=== PATIENT | male | born 1960 | race Caucasian/White ===

== ENCOUNTER 2017-07-24 11:11 | Inpatient (IN) | payer BC, OTHER ==
[2017-07-24] VITALS (8 sets, daily range): BP systolic 96–135; BP diastolic 68–92
[~2017-07-24] VITALS: Ht 182.9 cm; Wt 95.3 kg
--- NOTE | 2017-07-24 11:45 | RAD ---
Indication: Palpitations. Time of exam 11:34 AM Correlation is made with prior chest from 08/10/2010. FINDINGS: The heart size is normal. The lungs are clear. No pleural effusion or pneumothorax is identified. The pulmonary vascularity is normal. IMPRESSION: No acute abnormality detected.
[2017-07-24 11:52] LABS: HEMATOCRIT 46.7 % (39.0-53.0); HEMOGLOBIN 14.9 g/dL (13.0-17.5); MEAN CORPUSCULAR HEMOGLOBIN 29 pg (25-35); MEAN CORPUSCULAR HGB CONC 32 g/dL (31-37); MEAN CORPUSCULAR VOLUME 91 fL (79-100); PLATELET COUNT 281 x10^3/uL (140-400); RED BLOOD COUNT 5.11 x10^6/uL (4.30-5.70); RED CELL DISTRIBUTION WIDTH 14.7 % (11.5-14.5); WHITE BLOOD COUNT 7.6 x10^3/uL (4.0-11.0)
[2017-07-24 12:01] LABS: % BANDS 6 % (0-9); % LYMPHS 40 % (24-48); % MONOS 2 % (0-10); % SEGS 52 % (35-66)
[2017-07-24 12:03] LABS: ALBUMIN 3.7 g/dL (3.4-5.0); ALBUMIN/GLOBULIN RATIO 0.9 (1.0-1.7); CALCIUM 9.1 mg/dL (8.5-10.1); CREATININE 1.5 mg/dL (0.7-1.3); GFR 48.2; POTASSIUM 4.2 mmol/L (3.5-5.1); TOTAL BILIRUBIN 0.7 mg/dL (0.2-1.0); TOTAL PROTEIN 7.8 g/dL (6.4-8.2)
[2017-07-24 12:04] LABS: PLT ESTIMATE ADEQUATE (ADEQUATE)
[2017-07-24] MEDS ORDERED: dilTIAZem 25 MG/5 ML VIAL IVP ONE (12:10)
[2017-07-24 12:28] LABS: INFLUENZA A PATIENT NEGATIVE (NEGATIVE); INFLUENZA B PATIENT NEGATIVE (NEGATIVE)
--- NOTE | 2017-07-24 12:47 | PHYS DOC ---
Past History Past Medical History: Hypertension Past Surgical History: No Surgical History Alcohol Use: None Drug Use: None Adult General Chief Complaint Chief Complaint: RAPID HEART RATE HPI HPI 57-year-old male patient complaining of nasal congestion and cough for the last 8 days with fever up to 101 for the last 3 days. Patient was seen by his primary care physician today for upper respiratory infection symptoms and had irregular and fast heartbeat and EKG showed atrial fibrillation with RVR and sent to ER for evaluation. Patient denies chest pain and palpitation history of irregular heartbeat. Patient complaining of episodes of exertional shortness of breaths not related to his cough for the last several days with mild dizziness and generalized weakness. Review of Systems Review of Systems Constitutional: Reports fever and chills Eyes: Denies change in visual acuity, redness, or eye pain [] HENT: Reports nasal congestion Respiratory: Reports cough and shortness of breath [] Cardiovascular: No additional information not addressed in HPI [] GI: Denies abdominal pain, nausea, vomiting, bloody stools, reports diarrhea [] : Denies dysuria or hematuria [] Musculoskeletal: Denies back pain or joint pain [] Integument: Denies rash or skin lesions [] Neurologic: Denies headache, focal weakness or sensory changes [] Endocrine: Denies polyuria or polydipsia [] All other systems were reviewed and found to be within normal limits, except as documented in this note. Current Medications Current Medications Current Medications Medications (Trade) Dose Ordered Sig/Sung Start Time Stop Time Status Last Admin Dose Admin Diltiazem HCl (Cardizem) 20 mg 1X ONCE 07/24/17 12:10 07/24/17 12:11 DC 07/24/17 11:52 20 MG Diltiazem HCl 125 mg/Dextrose 125 ml @ 10 mls/hr 1X ONCE 07/24/17 12:45 07/25/17 01:14 07/24/17 12:40 10 MLS/HR Allergies Allergies Allergies Coded Allergies Type Severity Reaction Last Updated Verified No Known Drug Allergies 07/24/17 No Physical Exam Physical Exam Constitutional: Well developed, well nourished, mild distress, non-toxic appearance, afebrile. [] HENT: Normocephalic, atraumatic, bilateral external ears normal, oropharynx moist, pharyngeal erythema without edema or exudate, nose normal. [] Eyes: PERRLA, EOMI, conjunctiva normal, no discharge. [] Neck: Normal range of motion, no tenderness, supple, no stridor. [] Cardiovascular:Irregularly irregular fast rhythm, no murmur [] Lungs & Thorax: Bilateral breath sounds clear to auscultation [] Abdomen: Bowel sounds normal, soft, no tenderness, no masses, no pulsatile masses. [] Skin: Warm, dry, no erythema, no rash. [] Back: No tenderness, no CVA tenderness. [] Extremities: No tenderness, no cyanosis, no clubbing, ROM intact, no edema. [] Neurologic: Alert and oriented X 3, normal motor function, normal sensory function, no focal deficits noted. [] Psychologic: Affect normal, judgement normal, mood normal. [] Current Patient Data Vital Signs Vital Signs Date Time Temp Pulse Resp B/P (MAP) Pulse Ox O2 Delivery O2 Flow Rate FiO2 07/24/17 11:52 129 117/76 07/24/17 11:15 97.0 22 99 Room Air Lab Results Laboratory Tests Test 07/24/17 11:29 07/24/17 12:00 White Blood Count 7.6 x10^3/uL (4.0-11.0) Red Blood Count 5.11 x10^6/uL (4.30-5.70) Hemoglobin 14.9 g/dL (13.0-17.5) Hematocrit 46.7 % (39.0-53.0) Mean Corpuscular Volume 91 fL (79-100) Mean Corpuscular Hemoglobin 29 pg (25-35) Mean Corpuscular Hemoglobin Concent 32 g/dL (31-37) Red Cell Distribution Width 14.7 % (11.5-14.5) H Platelet Count 281 x10^3/uL (140-400) Segmented Neutrophils % 52 % (35-66) Band Neutrophils % 6 % (0-9) Lymphocytes % 40 % (24-48) Monocytes % 2 % (0-10) Platelet Estimate Adequate (ADEQUATE) Prothrombin Time 11.0 SEC (9.4-11.4) Prothrombin Time INR 1.1 (0.9-1.1) PTT 27 SEC (23-33) Sodium Level 137 mmol/L (136-145) Potassium Level 4.2 mmol/L (3.5-5.1) Chloride Level 101 mmol/L (98-107) Carbon Dioxide Level 27 mmol/L (21-32) Anion Gap 9 (6-14) Blood Urea Nitrogen 15 mg/dL (8-26) Creatinine 1.5 mg/dL (0.7-1.3) H Estimated GFR (Cockcroft-Gault) 48.2 BUN/Creatinine Ratio 10 (6-20) Glucose Level 118 mg/dL (70-99) H Calcium Level 9.1 mg/dL (8.5-10.1) Magnesium Level 2.0 mg/dL (1.8-2.4) Total Bilirubin 0.7 mg/dL (0.2-1.0) Aspartate Amino Transferase (AST) 32 U/L (15-37) Alanine Aminotransferase (ALT) 42 U/L (16-63) Alkaline Phosphatase 61 U/L (46-116) Creatine Kinase 281 U/L (39-308) Creatine Kinase MB (Mass) 7.6 ng/mL (0.0-3.6) H Creatine Kinase MB Relative Index 2.7 % (0-4) Troponin I Quantitative 0.023 ng/mL (0-0.055) CY-Aoz-A-Type Natriuretic Peptide 1414 pg/mL (0-124) H Total Protein 7.8 g/dL (6.4-8.2) Albumin 3.7 g/dL (3.4-5.0) Albumin/Globulin Ratio 0.9 (1.0-1.7) L Influenza Type A (Rapid) Negative (NEGATIVE) Influenza Type B (Rapid) Negative (NEGATIVE) EKG EKG EKG interpreted by me. EKG at 1123 showed atrial fibrillation with RVR at rate of 155, no acute ST and T-wave abnormality[] Radiology/Procedures Radiology/Procedures [Chest x-ray was unremarkable] Course & Med Decision Making Course & Med Decision Making Pertinent Labs and Imaging studies reviewed. (See chart for details) Evaluation of patient in ER showed 57-year-old male patient sent from his primary care physician office because of atrial flutter patient with RVR without history of arrhythmia. Patient didn't have chest pain with heart rate of 150s. Patient treated with bolus of 20 mg of Cardizem and drip of Cardizem and heart rate gradually dropped to 120s and 100s. Patient had otherwise stable vital signs. Flu test and labs was unremarkable except for BNP of 1400. Patient felt better after treatment in ER. On-call hospitalist Dr London informed at 1245 and agreed with plan of care and admission of patient to ICU. Patient informed about plan of care and test results. Dragon Disclaimer Dragon Disclaimer This electronic medical record was generated, in whole or in part, using a voice recognition dictation system. Departure Departure: Impression: Primary Impression: Atrial fibrillation with RVR Additional Impressions: Elevated brain natriuretic peptide (BNP) level Flu-like symptoms History of hypertension Disposition: 09 ADMITTED INPATIENT (At 1247) Admitting Physician: Jorge Luis London Condition: IMPROVED Referrals: DINESH DEL REAL MD (PCP) Critical Care Time Critical care time was [60] minutes exclusive of procedures. Problem Qualifiers KRISTINA HERNANDEZ MD Jul 24, 2017 12:47
--- NOTE | 2017-07-24 13:28 | EKG ---
[address] [address] Test Date: 2017-07-24 Test Time: 11:22:53 Pat Name: RON JAEGER Department: Room: Gender: M Engagement Liaison: BIBIANA : 1960 Requested By: KRISTINA HERNANDEZ Order Number: [id number] Reading MD: Measurements Intervals [place] Rate: 165 P: MO: QRS: 5 QRSD: 80 T: 58 QT: 284 QTc: 473 Interpretive Statements IRREGULAR RHYTHM, NO P-WAVE FOUND LOW LIMB LEAD VOLTAGE NO SPECIFIC ECG ABNORMALITIES RI6.01 Unconfirmed report No previous ECG available for comparison
[2017-07-24] MEDS ORDERED: LISI10TA2 PO (15:03)
[2017-07-24] MEDS ORDERED: METO100T5 PO (15:09)
--- NOTE | 2017-07-24 16:25 | PDOC2 ---
CONSULT Date of Admission DATE: 07/24/17 TIME: 16:19 Reason for Consult: Atrial fibrillation Referring Physician: Dr. London Chief Complaint Shortness of breath Source: Chart review, Patient Problem List Problems Medical Problems: (1) Atrial fibrillation with RVR Status: Acute (2) Elevated brain natriuretic peptide (BNP) level Status: Acute (3) Flu-like symptoms Status: Acute (4) History of hypertension Status: Acute History of Present Illness 57-year-old male presented complaining of shortness of breath since this morning. He was diagnosed with atrial fibrillation with rapid ventricular response in the emergency room. He denied any palpitations as such. He also denied any chest pain, orthopnea/PND or syncope. He denied any previous history of arrhythmias. He was told he had ventricular septal defect in his childhood but never had any further cardiac follow-up. Past Medical History Hypertension Ventricular septal defect Past Surgical History Cholecystectomy Family History Patient has a history of atrial fibrillation in the family but denied any history of premature coronary disease Social History Patient denied any smoking, alcohol or drug use Current Medications Current Medications Diltiazem HCl (Cardizem) 20 mg 1X ONCE IVP Last administered on 07/24/17t 11: 52; Start 07/24/17 at 12:10; Stop 07/24/17 at 12:11; Status DC Diltiazem HCl 125 mg/Dextrose 125 ml @ 10 mls/hr 1X ONCE IV ; Start 07/24/17 at 12:15; Stop 07/24/17 at 12:22; Status DC Diltiazem HCl 125 mg/Dextrose 125 ml @ 10 mls/hr 1X ONCE IV Last administered on 07/24/17t 12:40; Start 07/24/17 at 12:45; Stop 07/25/17 at 01 :14 Diltiazem HCl 125 mg/Dextrose 125 ml @ 0 mls/hr CONT PRN IV SEE I/O RECORD; Start 07/24/17 at 15:30 Active Scripts Active Reported Toprol Xl (Metoprolol Succinate) 100 Mg Tab.er.24h 1 Tab PO HS Lisinopril 10 Mg Tablet 1 Tab PO HS Allergies: Coded Allergies: No Known Drug Allergies (Unverified , 07/24/17) PSYCHOLOGICAL ROS: No: Hallucinations Eyes: No: Loss of vision HEENT: No: Epistaxis Respiratory: YES: Shortness of breath, No: Hemoptysis Cardiovascular: No: Chest Pain, Palpitations Neurological: No: Confusion, Seizures Skin: No: Rash General: Alert, Oriented X3 HEENT: Atraumatic, PERRLA Lungs: Clear to auscultation Heart: Other (heart rate is irregular) Abdomen: Soft, No tenderness Extremities: No edema Psych/Mental Status: Mood NL VITALS Vital Signs Date Time Temp Pulse Resp B/P (MAP) Pulse Ox O2 Delivery O2 Flow Rate FiO2 07/24/17 15:10 98.3 134 22 135/90 (105) 98 Room Air Labs Laboratory Tests Test 07/24/17 11:29 07/24/17 12:00 07/24/17 15:00 White Blood Count 7.6 x10^3/uL (4.0-11.0) Red Blood Count 5.11 x10^6/uL (4.30-5.70) Hemoglobin 14.9 g/dL (13.0-17.5) Hematocrit 46.7 % (39.0-53.0) Mean Corpuscular Volume 91 fL (79-100) Mean Corpuscular Hemoglobin 29 pg (25-35) Mean Corpuscular Hemoglobin Concent 32 g/dL (31-37) Red Cell Distribution Width 14.7 % (11.5-14.5) Platelet Count 281 x10^3/uL (140-400) Segmented Neutrophils % 52 % (35-66) Band Neutrophils % 6 % (0-9) Lymphocytes % 40 % (24-48) Monocytes % 2 % (0-10) Platelet Estimate Adequate (ADEQUATE) Prothrombin Time 11.0 SEC (9.4-11.4) Prothromb Time International Ratio 1.1 (0.9-1.1) Activated Partial Thromboplast Time 27 SEC (23-33) Sodium Level 137 mmol/L (136-145) Potassium Level 4.2 mmol/L (3.5-5.1) Chloride Level 101 mmol/L (98-107) Carbon Dioxide Level 27 mmol/L (21-32) Anion Gap 9 (6-14) Blood Urea Nitrogen 15 mg/dL (8-26) Creatinine 1.5 mg/dL (0.7-1.3) Estimated GFR (Cockcroft-Gault) 48.2 BUN/Creatinine Ratio 10 (6-20) Glucose Level 118 mg/dL (70-99) Calcium Level 9.1 mg/dL (8.5-10.1) Magnesium Level 2.0 mg/dL (1.8-2.4) Total Bilirubin 0.7 mg/dL (0.2-1.0) Aspartate Amino Transf (AST/SGOT) 32 U/L (15-37) Alanine Aminotransferase (ALT/SGPT) 42 U/L (16-63) Alkaline Phosphatase 61 U/L (46-116) Creatine Kinase 281 U/L (39-308) Creatine Kinase MB (Mass) 7.6 ng/mL (0.0-3.6) Creatine Kinase MB Relative Index 2.7 % (0-4) Troponin I Quantitative 0.023 ng/mL (0-0.055) VK-Hjj-Q-Type Natriuretic Peptide 1414 pg/mL (0-124) Total Protein 7.8 g/dL (6.4-8.2) Albumin 3.7 g/dL (3.4-5.0) Albumin/Globulin Ratio 0.9 (1.0-1.7) Thyroid Stimulating Hormone (TSH) 1.693 uIU/mL (0.358-3.740) Influenza Type A (Rapid) Negative (NEGATIVE) Influenza Type B (Rapid) Negative (NEGATIVE) Lactic Acid Level 1.4 mmol/L (0.4-2.0) Assessment/Plan 1. Atrial fibrillation with rapid ventricular response, new onset. TSH level normal. Heart rate better controlled with intravenous Cardizem infusion. Change this to by mouth and start Eliquis for stroke prophylaxis. Check 2-D echo to assess LV systolic function. Plan for outpatient cardioversion after 3-4 weeks of therapeutic anticoagulation. 2. Elevated BNP level consistent with mild acute diastolic heart failure probably related to rapid ventricular response. Chest x-ray and physical exam not consistent with any significant fluid overload. We will hold off diuretics for now. 3. Hypertension: Well-controlled Thank you for your consultation Problems: DON RODRIGUEZ MD Jul 24, 2017 16:25
--- NOTE | 2017-07-24 16:57 | HP ---
ADMIT DATE: 07/24/2017 HISTORY OF PRESENT ILLNESS: The patient is a 57-year-old male patient who basically came to the Emergency Room complaining of shortness of breath. He apparently has had upper respiratory tract infection and stuffy nose that has been going on for about 6 days. 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 On questioning him further, he did complain of lightheadedness, but denied any chest pain, denied any orthopnea or paroxysmal nocturnal dyspnea. Denied any cough, phlegm or hemoptysis. The patient was admitted to control the heart rate and started on blood thinner and to consult the Cardiology team. PAST MEDICAL HISTORY: Significant for hypertension and history of nephrolithiasis 10 years ago with stone that he passed spontaneously. He also has a history of bowel obstruction that resolved conservatively. PAST SURGICAL HISTORY: Significant for cholecystectomy, has a hernia repair when he was only 6 months old and colonoscopy. ALLERGIES: He has no known drug allergies. MEDICATIONS: He is currently on lisinopril 10 mg once a day and metoprolol succinate 100 mg extended release 1 tablet once a day. FAMILY HISTORY: He has 1 younger brother who is also known to have high blood pressure, and his father is alive at age of 78 and he is known to have hypertension, atrial fibrillation, has had also myocardial infarction with PCI and stent deployment. His mother is still alive at age of 76, who is known to have hypertension and atrial fibrillation. SOCIAL HISTORY: He is twice. Currently lives with his girlfriend and has 2 sons and 1 daughter. He never smoked, does not drink alcohol or use any drugs. 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 REVIEW OF SYSTEMS: The patient denied any blurring of vision, cataract, glaucoma or macular degeneration. Denied any earache, tinnitus or sensorineural deafness. Denied any nosebleeds, stuffy nose or postnasal drip. Denied any sore throat, sore tongue, toothache, hoarseness of voice or difficulty swallowing. Denied any nausea, vomiting, diarrhea or constipation. Denied any hematemesis, melena or hematochezia. Denied any dysuria, frequency or hematuria. Did complain of shortness of breath, but denied any chest pain, denied any diaphoresis, denied any orthopnea or paroxysmal nocturnal dyspnea. Did complain of lightheadedness. PHYSICAL EXAMINATION: GENERAL: On arrival to the Emergency Room, he was slightly tachypneic, but there is no pallor, jaundice or cyanosis. No lymphadenopathy, no thyromegaly. No jugular venous distension. No limb edema. HEENT: His heart rate was 168, irregularly irregular, blood pressure was 117/76, temperature was 97, respiratory rate 22, and oxygen saturation was 99%. HEAD, EYES, EARS, NOSE AND THROAT: Showed normocephalic, atraumatic. NECK: Supple. HEART: Showed regular first heart sound, normal second heart sounds with no gallop, rub or murmur. CHEST: Clear to auscultation. No crepitation or rhonchi. ABDOMEN: Distended, soft, nontender. No guarding or rigidity. No organomegaly. Hernial orifice intact. Bowel sounds normal. NEUROLOGIC: He was awake, alert, responding appropriately. All cranial nerves intact. He moves extremities without difficulty. LABORATORY AND DIAGNOSTIC DATA: His lab work showed a white cell count 7600, hemoglobin 14.9, hematocrit 47, MCV 91, and platelet count 281,000 with normal manual differential. His prothrombin time was 11, INR 1.1, aPTT was 27. His chemistry showed a serum sodium 137, potassium 4.2, chloride 101, bicarbonate 27, anion gap of 9, BUN 15, creatinine 1.5, estimated GFR was 48 mL per minute. His glucose was 118, calcium was 9.1, and magnesium 2. Total bilirubin, AST, ALT, alkaline phosphatase were normal. His first set of cardiac enzymes showed troponin to be 0.023. Beta natriuretic peptide was 1414. Total protein was 7.8, albumin 3.7. His TSH was 1.693. Serology for influenza A and B were negative. His EKG showed that he was in atrial fibrillation with rapid ventricular response. No acute ST-T changes. SUMMARY: This is a 57-year-old male patient who was admitted with shortness of breath and was found to be in atrial fibrillation with rapid ventricular response. His lab work showed that he has slightly elevated troponin at 0.023 and also has slightly impaired kidney function at 1.5 mg/dL with an estimated GFR of 48 mL per minute. Plan is to do 2 more sets of cardiac enzyme, consult the Cardiology. He was given a loading dose of Cardizem and is now on a Cardizem drip. LAURA SAHNI MD DR: AMINA/rula JOB#: [id number] / [id number]
[2017-07-24] MEDS: APIXABAN 5 MG TABLET. PO SCH (21:13)
[2017-07-24] MEDS: TEMAZEPAM 15 MG CAPSULE PO PRN (22:06)
[2017-07-24] MEDS: HYDROcodone/APAP 5/325MG 1 TAB TABLET PO PRN (22:07)
[2017-07-25] VITALS (17 sets, daily range): BP systolic 96–128; BP diastolic 41–95
[2017-07-25 06:22] LABS: BASO % 0 % (0-3); EOS # 0.2 x10^3/uL (0.0-0.7); EOS % 3 % (0-3); HEMATOCRIT 43.6 % (39.0-53.0); HEMOGLOBIN 14.4 g/dL (13.0-17.5); LYMPH # 1.4 x10^3/uL (1.0-4.8); LYMPH % 24 % (24-48); MEAN CORPUSCULAR HEMOGLOBIN 30 pg (25-35); MEAN CORPUSCULAR HGB CONC 33 g/dL (31-37); MEAN CORPUSCULAR VOLUME 92 fL (79-100); MONO # 0.4 x10^3/uL (0.0-1.1); MONO % 6 % (0-9); NEUT # 3.9 x10^3uL (1.8-7.7); NEUT % 67 % (31-73); PLATELET COUNT 231 x10^3/uL (140-400); RED BLOOD COUNT 4.75 x10^6/uL (4.30-5.70); RED CELL DISTRIBUTION WIDTH 14.3 % (11.5-14.5); WHITE BLOOD COUNT 5.9 x10^3/uL (4.0-11.0)
[2017-07-25 06:43] LABS: CALCIUM 8.3 mg/dL (8.5-10.1); CREATININE 1.1 mg/dL (0.7-1.3); MAGNESIUM 1.9 mg/dL (1.8-2.4); POTASSIUM 3.7 mmol/L (3.5-5.1)
[2017-07-25] MEDS: APIXABAN 5 MG TABLET. PO SCH ×2 (07:28→21:12)
[2017-07-25] MEDS: HYDROcodone/APAP 5/325MG 1 TAB TABLET PO PRN (07:36)
--- NOTE | 2017-07-25 09:26 | RAD ---
2 views of the Chest 07/25/2017 9:42 AM Indication: crackles L bases Comparison: Chest radiograph July 24, 2017 Findings: There is no focal consolidation or infiltrate identified. There is no effusion or pneumothorax. The cardiomediastinal silhouette and pulmonary vasculature are within normal limits. No osseous abnormality is identified. Impression: No evidence of acute cardiopulmonary process.
[2017-07-25] MEDS ORDERED: ONDANSETRON PF 4 MG/2 ML VIAL. ONE (14:07)
[2017-07-25] MEDS ORDERED: ONDANSETRON PF 4 MG/2 ML VIAL. IV PRN (14:15)
[2017-07-25] MEDS ORDERED: KETOROLAC 30 MG/ML VIAL. IV PRN (15:15)
[2017-07-25] MEDS ORDERED: ACETAMINOPHEN 325 MG TABLET PO PRN (15:15)
--- NOTE | 2017-07-25 16:59 | PN ---
DATE: 07/25/2017 SUBJECTIVE: Overnight, the patient did not have any significant events this morning. He had some mild nausea and some headaches, which ultimately led to emesis. He otherwise denies any chest pain, orthopnea or PND. OBJECTIVE: VITAL SIGNS: Afebrile, heart rate average run 110, blood pressure 115/62, pulse ox 99% on room air. GENERAL: He is alert and oriented, in no acute distress. HEAD AND NECK: Unremarkable. Neck veins are flat. CARDIAC: Irregular rate and rhythm without any murmurs, rubs or gallops. LUNGS: Fairly clear to auscultation bilaterally. ABDOMEN: Soft, nontender, and nondistended. EXTREMITIES: Without any clubbing, cyanosis or edema with 2+ pulses. DIAGNOSTIC STUDIES: Echocardiogram is pending. Creatinine 1.1. INR yesterday 1.1, and hemoglobin 14.4 today. Chest x-ray: No evidence of acute pathology. IMPRESSION: 1. New onset atrial fibrillation with controlled ventricular response, on Cardizem therapy. 2. Minimal hypertension. RECOMMENDATIONS: Continue Cardizem at this present dose. If he has persistent high heart rates above 100, we will add metoprolol XL 50 mg daily. Would defer increasing his Cardizem, so that he does not had any hypotensive episodes. Treatment of his headache and nausea per PCP. We will follow up on his echo results and he will have an outpatient evaluation for consideration of cardioversion. Thank you for this consultation. GAMALIEL TAM MD DR: CAITLYN/rula JOB#: [id number] / [id number]
--- NOTE | 2017-07-25 18:01 | CARD ---
MR#: [id number] Date of Study: 07/25/2017 Ordering Physician: DON RODRIGUEZ, Referring Physician: Tawana GRACE: [facility] APPROVED REPORT EXAM: Two-dimensional and M-mode echocardiogram with Doppler and color Doppler. INDICATION Atrial Fibrillation 2D DIMENSIONS RVDd3.3 (2.9-3.5cm)Left Atrium(2D)4.3 (1.6-4.0cm) IVSd1.1 (0.7-1.1cm)Aortic Root(2D)3.7 (2.0-3.7cm) LVDd6.0 (3.9-5.9cm)LVOT Diameter2.4 (1.8-2.4cm) PWd1.2 (0.7-1.1cm)LVDs4.6 (2.5-4.0cm) FS (%) 22.9 %SV80.4 ml LVEF(%)45.2 (>50%) Aortic Valve AoV Peak Sean.132.7cm/sAoV VTI25.4cm AO Peak GR.7.0mmHgLVOT Peak Sean.92.3cm/s AO Mean GR.4mmHgAVA (VMAX)3.21cm2 Mitral Valve MV E Bqftxhlg83.6cm/sMV DECEL [id number] MV A Ooxnqulk08.2cm/sE/A Ratio3.2 Pulmonary Valve PV Peak Jdblmfvt913.1cm/sPV Peak Grad.5mmHg Tricuspid Valve RAP [id number] LEFT VENTRICLE The Left Ventricle is mildly dilated. There is normal left ventricular wall thickness. The systolic f unction is mildly impaired. The Ejection Fraction is 40-45%. Mild global hypokinesis. Tissue Doppler imaging reveals moderate left ventricular diastolic dysfunction. RIGHT VENTRICLE The right ventricle is normal size. The right ventricular systolic function is normal. ATRIA The left atrium size is normal. The right atrium size is normal. The interatrial septum is intact wit h no evidence for an atrial septal defect or patent foramen ovale as noted on 2-D or Doppler imaging. AORTIC VALVE The aortic valve is thickened but opens well. Doppler and Color Flow revealed trace aortic regurgitat ion. There is no significant aortic valvular stenosis. There is no aortic valvular vegetation. MITRAL VALVE The mitral valve is normal in structure and function. There is no evidence of mitral valve prolapse. There is no mitral valve stenosis. Doppler and Color Flow revealed no mitral valve regurgitation note d. TRICUSPID VALVE The tricuspid valve is normal in structure and function. Doppler and Color Flow revealed trace to mil d tricuspid regurgitation. There is no tricuspid valve prolapse or vegetation. There is no tricuspid valve stenosis. PULMONIC VALVE Pulmonic valve was not well visualized. Doppler and Color Flow revealed trace pulmonic valvular regur gitation. There is no pulmonic valvular stenosis. GREAT VESSELS The aortic root is normal in size. The IVC is normal in size and collapses >50% with inspiration. PERICARDIAL EFFUSION There is no pleural effusion. There is no evidence of significant pericardial effusion. Critical Notification Critical Value: No <Conclusion> The systolic function is mildly impaired. The Ejection Fraction is 40-45%. Mild global hypokinesis. Tissue Doppler imaging reveals moderate left ventricular diastolic dysfunction. Signed by : Jaydon Patel, Electronically Approved : 07/25/2017 18:01:05
[2017-07-25] MEDS ORDERED: IV NORMAL SALINE 1,000ML 500 ML IV ONE (19:15)
[2017-07-25] MEDS: TEMAZEPAM 15 MG CAPSULE PO PRN (21:12)
[2017-07-26] VITALS (9 sets, daily range): BP systolic 99–119; BP diastolic 66–84
[2017-07-26] MEDS: HYDROcodone/APAP 5/325MG 1 TAB TABLET PO PRN (02:18)
--- NOTE | 2017-07-26 03:35 | PN ---
DATE: 07/25/2017 SUBJECTIVE: The patient is sitting on the edge of the bed comfortably in no apparent respiratory distress. He apparently had had his migraine headache and has vomited once, but denied any chest pain or shortness of breath. His heart rate still suboptimally controlled. Apparently, he has had an echocardiogram done the results of which still not available yet. PHYSICAL EXAMINATION: GENERAL: When I examined him, he looked well and was clearly in no apparent respiratory distress. No pallor, jaundice, cyanosis or thyromegaly. No jugular venous distention. No limb edema. VITAL SIGNS: His heart rate was 120, blood pressure 128/84, temperature was 98.4, respiratory rate 22 and oxygen saturation was 98%. HEAD, EYES, EARS, NOSE AND THROAT: Showed normocephalic, atraumatic. NECK: Supple. HEART: Showed normal first and second heart sounds with no gallop, rub or murmur. CHEST: Clear to auscultation. No crepitation or rhonchi. ABDOMEN: Distended, soft, nontender. No guarding or rigidity. No organomegaly. All hernial orifices intact. Bowel sounds normal. LABORATORY DATA: Showed a white cell count 5900, hemoglobin 14.4, hematocrit 44, MCV 92 and platelet count of 231,000. His chemistry showed serum sodium of 138, potassium 3.7, chloride 102, bicarbonate 27, anion gap of 9, BUN 15, creatinine 1.1. Estimated GFR was 69 mL per minute. His glucose 100, calcium was 8.3, magnesium was 1.9. His TSH is normal. His fasting lipid profile also is within normal range. ASSESSMENT: New onset of atrial fibrillation with suboptimally controlled ventricular response with Cardizem therapy and minimal hypertension. PLAN: To observe him overnight and if his heart rate continued to be high, beta-blockers will be added tomorrow and they can be discharged home. LAURA SAHNI MD DR: AMINA/rula JOB#: [id number] / [id number]
[2017-07-26 06:31] LABS: BASO % 0 % (0-3); EOS # 0.1 x10^3/uL (0.0-0.7); EOS % 2 % (0-3); HEMATOCRIT 40.1 % (39.0-53.0); HEMOGLOBIN 13.5 g/dL (13.0-17.5); LYMPH # 1.6 x10^3/uL (1.0-4.8); LYMPH % 27 % (24-48); MEAN CORPUSCULAR HEMOGLOBIN 31 pg (25-35); MEAN CORPUSCULAR HGB CONC 34 g/dL (31-37); MEAN CORPUSCULAR VOLUME 91 fL (79-100); MONO # 0.4 x10^3/uL (0.0-1.1); MONO % 7 % (0-9); NEUT # 3.6 x10^3uL (1.8-7.7); NEUT % 64 % (31-73); PLATELET COUNT 233 x10^3/uL (140-400); RED BLOOD COUNT 4.43 x10^6/uL (4.30-5.70); WHITE BLOOD COUNT 5.7 x10^3/uL (4.0-11.0)
[2017-07-26 06:41] LABS: MAGNESIUM 1.9 mg/dL (1.8-2.4); POTASSIUM 3.3 mmol/L (3.5-5.1)
[2017-07-26] MEDS ORDERED: POTASSIUM CHLORIDE 20 MEQ TABLET.ER. PO ONE (07:15)
[2017-07-26] MEDS: APIXABAN 5 MG TABLET. PO SCH (07:52)
[2017-07-26] MEDS ORDERED: METOPROLOL SUCC 24HR ER 25 MG TAB.ER.24H. PO SCH (10:00)
[2017-07-26] MEDS ORDERED: DILT240C2 PO (14:45)
[2017-07-26] MEDS ORDERED: METO50TA4 PO (14:45)
[2017-07-26] MEDS ORDERED: APIX5TAB3 PO (14:51)
--- NOTE | 2017-07-26 17:48 | PDOC ---
SUBJECTIVE: Patient seen and examined The patient is feeling significantly better. OBJECTIVE: Problems: Problems Medical Problems: (1) Atrial fibrillation with RVR Status: Acute (2) Elevated brain natriuretic peptide (BNP) level Status: Acute (3) Flu-like symptoms Status: Acute (4) History of hypertension Status: Acute 1. New onset atrial fibrillation. Rate controlled on calcium channel blockers and beta blockers. Continuing anticoagulation. Increase activities. Home later today with office follow-up in 3-4 weeks. 2. Minimal hypertension. Controlled. Continue present medications. Vital Signs: Vital Signs Date Time Temp Pulse Resp B/P (MAP) Pulse Ox O2 Delivery O2 Flow Rate FiO2 07/26/17 16:00 Room Air 07/26/17 12:03 98 16 99/76 (84) 95 07/26/17 11:09 97.8 I & O Intake and Output 07/26/17 07:00 Intake Total 2795 ml Output Total 2750 ml Balance 45 ml Intake Oral 1670 ml IV Total 1125 ml Output Urine Total 2750 ml # Bowel Movements 2 Labs: Laboratory Tests Test 07/24/17 23:50 07/25/17 05:47 07/26/17 06:02 Troponin I Quantitative 0.022 ng/mL (0-0.055) White Blood Count 5.9 x10^3/uL (4.0-11.0) 5.7 x10^3/uL (4.0-11.0) Red Blood Count 4.75 x10^6/uL (4.30-5.70) 4.43 x10^6/uL (4.30-5.70) Hemoglobin 14.4 g/dL (13.0-17.5) 13.5 g/dL (13.0-17.5) Hematocrit 43.6 % (39.0-53.0) 40.1 % (39.0-53.0) Mean Corpuscular Volume 92 fL (79-100) 91 fL (79-100) Mean Corpuscular Hemoglobin 30 pg (25-35) 31 pg (25-35) Mean Corpuscular Hemoglobin Concent 33 g/dL (31-37) 34 g/dL (31-37) Red Cell Distribution Width 14.3 % (11.5-14.5) 14.0 % (11.5-14.5) Platelet Count 231 x10^3/uL (140-400) 233 x10^3/uL (140-400) Neutrophils (%) (Auto) 67 % (31-73) 64 % (31-73) Lymphocytes (%) (Auto) 24 % (24-48) 27 % (24-48) Monocytes (%) (Auto) 6 % (0-9) 7 % (0-9) Eosinophils (%) (Auto) 3 % (0-3) 2 % (0-3) Basophils (%) (Auto) 0 % (0-3) 0 % (0-3) Neutrophils # (Auto) 3.9 x10^3uL (1.8-7.7) 3.6 x10^3uL (1.8-7.7) Lymphocytes # (Auto) 1.4 x10^3/uL (1.0-4.8) 1.6 x10^3/uL (1.0-4.8) Monocytes # (Auto) 0.4 x10^3/uL (0.0-1.1) 0.4 x10^3/uL (0.0-1.1) Eosinophils # (Auto) 0.2 x10^3/uL (0.0-0.7) 0.1 x10^3/uL (0.0-0.7) Basophils # (Auto) 0.0 x10^3/uL (0.0-0.2) 0.0 x10^3/uL (0.0-0.2) Sodium Level 138 mmol/L (136-145) 139 mmol/L (136-145) Potassium Level 3.7 mmol/L (3.5-5.1) 3.3 mmol/L (3.5-5.1) Chloride Level 102 mmol/L (98-107) 105 mmol/L (98-107) Carbon Dioxide Level 27 mmol/L (21-32) 27 mmol/L (21-32) Anion Gap 9 (6-14) 7 (6-14) Blood Urea Nitrogen 15 mg/dL (8-26) 13 mg/dL (8-26) Creatinine 1.1 mg/dL (0.7-1.3) 1.0 mg/dL (0.7-1.3) Estimated GFR (Cockcroft-Gault) 69.0 77.0 Glucose Level 100 mg/dL (70-99) 103 mg/dL (70-99) Calcium Level 8.3 mg/dL (8.5-10.1) 8.0 mg/dL (8.5-10.1) Magnesium Level 1.9 mg/dL (1.8-2.4) 1.9 mg/dL (1.8-2.4) Triglycerides Level 99 mg/dL (0-150) Cholesterol Level 74 mg/dL (0-200) LDL Cholesterol, Calculated 36 mg/dL (0-100) VLDL Cholesterol, Calculated 19 mg/dL (0-40) Non-HDL Cholesterol Calculated 55 mg/dL (0-129) HDL Cholesterol 19 mg/dL (40-60) Cholesterol/HDL Ratio 3.0 Physical Exam: Chest. Clear to auscultation and percussion. CV: irregularly irregular, rate 90 Abdomen. Soft GABINO FINN MD Jul 26, 2017 17:48
--- NOTE | 2017-07-26 18:28 | DS ---
DATE OF DISCHARGE: 07/26/2017 HOSPITAL COURSE: The patient is sitting in the edge of the bed comfortably, in no apparent distress. On questioning him this morning, denied any complaint, in particular denied any chest pain, shortness of breath, palpitation, dizziness or lightheadedness. He continued to have headache that responds well to pain medication. 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 PHYSICAL EXAMINATION: GENERAL: When I examined today, he looked well and was clearly in no apparent respiratory distress. No pallor, jaundice, cyanosis, or thyromegaly. No jugular venous distension. No limb edema. VITAL SIGNS: His heart rate was 98, blood pressure was 199/76, temperature was 97.8, respiratory rate was 16, and oxygen saturation was 95% on room air. HEAD, EYES, EARS, NOSE AND THROAT: Normocephalic, atraumatic. NECK: Supple. HEART: Showed normal first and second heart sounds with no gallop, rub or murmur. CHEST: Clear to auscultation. No crepitation or rhonchi. ABDOMEN: Distended, soft, nontender. No guarding or rigidity. No organomegaly. Hernial orifices intact. Bowel sounds normal. NEUROLOGIC: He was awake, alert, responding appropriately. All cranial nerves intact. He moves extremities without difficulty, ambulates without assistance or assistive devices. His intake over the last 24 hours was 2790, output was 2750. LABORATORY DATA: As of this morning, his serum sodium was 139, potassium 3.3, chloride 105, bicarbonate 27, anion gap of 7, BUN 13, creatinine 1, estimated GFR was 77. His blood glucose 103, calcium was 8, magnesium was 1.9. His triglycerides were 99. Total cholesterol was 74, LDL was 36, VLDL was 19, and HDL was 19. His TSH was 1.693. His white cell count was 5700, hemoglobin 13.5, hematocrit 40, MCV 91, and platelet count of 233,000. FINAL DISCHARGE DIAGNOSES: New onset atrial fibrillation with rapid ventricular response, rate well controlled on Cardizem and Toprol-XL, and well anticoagulated on apixaban. Hypertension, well controlled. LAURA SAHNI MD DR: Pio JOB#: [id number] / [id number]
--- NOTE | 2017-07-26 19:49 | PN ---
DATE: 07/25/2017 SUBJECTIVE: The patient is sitting on the edge of the bed comfortably in no apparent distress. He has had multiple episodes of nausea and vomiting, also headache. He was started on DICTATION ENDS HERE LAURA SAHNI MD DR: AMINA/rula JOB#: [id number] / [id number]
== END 2017-07-26 15:45 | disposition home or self-care (01) | DRG 308 ==
LOC: ER 11:11 → ICU 12:47
PROVIDERS: ADMIT Internal Medicine; ATTEND Internal Medicine
DX: I48.91 Unspecified atrial fibrillation (principal); I50.31 Acute diastolic (congestive) heart failure; I11.0 Hypertensive heart disease with heart failure; J06.9 Acute upper respiratory infection, unspecified; Z82.49 Family history of ischemic heart disease and other diseases of the circulatory system; Z87.442 Personal history of urinary calculi; Z90.49 Acquired absence of other specified parts of digestive tract; Z79.899 Other long term (current) drug therapy
CPT/HCPCS: 36415; 71010; 71020; 80048; 80053; 80061; 82553; 83605; 83735; 83880; 84443; 84484; 85007; 85025; 85610; 85730; 87641; 87804; 93005; 93306; 96374; J3490; 99291-25; J7030

== ENCOUNTER → 2017-09-19 | Outpatient (CLI) | payer OTHER ==
[~2017-09-19] MED LIST: AMIODARONE 150 MG in IV DEXTROSE 5% 100 ML IVP ONE; AMIODARONE 900 MG in IV DEXTROSE 5% 500 ML IV PRN; APIX5TAB3 PO; DILT240C2 PO; IV NORMAL SALINE 500ML 500 ML IV ONE; LISI10TA2 PO; METO100T5 PO; METO50TA4 PO
[2017-09-19 11:02] VITALS: BP 112/79
[2017-09-19 11:33] VITALS: BP 58/48
[2017-09-19 11:45] VITALS: BP 98/50
[2017-09-19 11:54] VITALS: BP 117/97
[2017-09-19 12:11] LABS: BASO # 0.1 x10^3/uL (0.0-0.2); BASO % 1 % (0-3); EOS # 0.2 x10^3/uL (0.0-0.7); EOS % 2 % (0-3); HEMATOCRIT 44.7 % (39.0-53.0); HEMOGLOBIN 14.5 g/dL (13.0-17.5); LYMPH # 1.5 x10^3/uL (1.0-4.8); LYMPH % 15 % (24-48); MEAN CORPUSCULAR HEMOGLOBIN 30 pg (25-35); MEAN CORPUSCULAR HGB CONC 33 g/dL (31-37); MEAN CORPUSCULAR VOLUME 93 fL (79-100); MONO # 0.6 x10^3/uL (0.0-1.1); MONO % 5 % (0-9); NEUT # 8.3 x10^3uL (1.8-7.7); NEUT % 77 % (31-73); PLATELET COUNT 320 x10^3/uL (140-400); RED BLOOD COUNT 4.79 x10^6/uL (4.30-5.70); RED CELL DISTRIBUTION WIDTH 14.6 % (11.5-14.5); WHITE BLOOD COUNT 10.7 x10^3/uL (4.0-11.0)
[2017-09-19 12:40] VITALS: BP 103/81
--- NOTE | 2017-09-19 16:39 | RAD ---
MR#: [id number] Date of Study: 09/19/2017 Ordering Physician: GAMALIEL TAM, Referring Physician: JULES SUN Tech: RENEA Hamm, MARTÍN (R) (N) APPROVED REPORT Test Type: Exercise Stress Nurse/Tech: LUZ Walker Test Indications: A-FIB, HTN Cardiac History: See Electronic Medical Record Medications: See Electronic Medical Record Medical History: See Electronic Medical Record Resting ECG: A-FIB, NO ACUTE ST/T CHANGES Resting Heart Rate: 62 bpm Resting Blood Pressure: 135/81mmHg Pretest Chest Pain: None Nurse/Tech Notes A FIB, NO ACUTE CHANGES Consent: The procedure was explained to the patient in lay terms. Informed consent was witnessed. Renzo eout was entered into [employer]. History and Stress Test performed by RENEA Hamm, MARTÍN (R) (N) Stress Symptoms NO CP, +SOB, POOR FUNCTIONING CAPACITY, UNCONTROLLED AF, NO ST/T CHANGES, NO REG ECTOPY MULTIFOCAL POST EXERCISE Target HR: Yes Max HR: 162 bpm 100% of Maximum Predicted HR: 163 bpm Exercise duration: 3:44 min:sec, 1 Stage Exercise capacity: 4.6METs Max Blood Pressure: 130/81mmHg Blood Pressure response to exercise: Normal blood pressure response during stress. Heart Rate response to exercise: AFIB Chest Pain: No. ST Change: No. INTERPRETATION Stress EKG Conclusion: Resting EKG showed an atrial fibrillation with nonspecific ST-T wave changes a nd PVCs. The stress EKG showed no significant changes from baseline. The patient did have increased PVCs and a five beat run of wide-complex tachycardia during recovery. No EKG changes diagnostic of ischemia however the patient had increased episodes of wide-complex tach ycardia at exertion and during rest. Imaging Protocol IMAGE PROTOCOL: Rest Tc-99m/stress Tc-99m 1 day Rest: Stress: Viability: Radiopharm.Tc99m CcdbcivigLf66h Sestamibi Sisv31xXg 33mCi Img Date 09/19/2017 09/19/2017 Inj-Img Nugf02vpr. 90min. Rest Admin Site:IV - Right AntecubitalAdministrator: RENEA Hamm, ARRT (R)(N) Stress Admin Site: IV - Right AntecubitalAdministrator: RENEA Hamm, ARRT (R)(N) STRESS DATA End Diast. Vol.203.0mlAv. Heart Rhbr481.0bpm LVEDV index BSA3.0mlCardiac Output0.1L/min End Syst. Vol.161.0mlCO Index BSA5.7L/min LVESV index BSA3.0mlMyocardial Wpns572.0g Eject. Gtkifxnf05.0% Stress Rates Pk. Fill Rate2.10EDV/secLVtime Pk. Fill 115.36msec Pk. Empty Rate2.47ESV/secLVtime Pk. Eject65.80msec / Pk. Fill0.40EDV/sec Stress Scores Regional WT3.00Summed WT46.00 Regional WM3.00Summed WM52.00 LV Perfusion The stress scans show a moderate distal anterior apical defect. The rest scans show a mild distal anterior apical defect. Nuclear imaging shows a fixed anterior apical defect with moderate riley-infarction reversible ischemi a. Wall Motion The left ventricular systolic function is severely decreased at 21% with global hypokinesis. LV Perf. Quant 17 Seg. SSS15.00 17 Seg. SRS7.00 17 Seg. SDS8.00 Stress Defect Extent (% LAD)59.40Rest Defect Extent (% LAD)30.60Rev. Defect Extent (% LAD)39.40 Stress Defect Extent (% LCX) 0.00Rest Defect Extent (% LCX)0.00Rev. Defect Extent (% LCX)0.00 Stress Defect Extent (% RCA)6.70Rest Defect Extent (% RCA)11.10Rev. Defect Extent (% RCA)0.00 Stress Defect Extent (% REED)30.00Rest Defect Extent (% REED)15.70Rev. Defect Extent (% REED)19.30 Conclusion 1. Limited exercise tolerance with the patient walking for 3 minutes and 44 seconds on a Edis protoc ol. 2. Baseline atrial fibrillation with no ST segment changes with exertion diagnostic of ischemia 3. PVCs at rest with increased arrhythmias with exertion and during rest with 5 beats of wide complex tachycardia. 4. Nuclear imaging shows a probable infarct in the distal anterior apical region with a moderate amou nt of riley-infarction ischemia. 5. Poor LV systolic function with an ejection fraction of 21% and severe global hypokinesis. 6. Moderately high risk Lexiscan nuclear stress test. Signed by : Navi Day MD Electronically Approved : 09/19/2017 16:38:38
== END | disposition home or self-care (01) ==
LOC: NM 07:59
PROVIDERS: ATTEND Internal Medicine Cardiovascular Disease
DX: I48.91 Unspecified atrial fibrillation (principal); I10 Essential (primary) hypertension
CPT/HCPCS: 36415; 78452; 80047; 85025; 93017; 96374; 96376; A9500; J0282; J7040

== ENCOUNTER → 2018-02-26 | Outpatient (CLI) | payer OTHER ==
[2017-07-26 12:03] VITALS: BP 99/76
[~2018-02-26] MED LIST changes: -AMIODARONE 150 MG in IV DEXTROSE 5% 100 ML IVP ONE; -AMIODARONE 900 MG in IV DEXTROSE 5% 500 ML IV PRN; -IV NORMAL SALINE 500ML 500 ML IV ONE
--- NOTE | 2018-02-26 10:10 | CARD ---
MR#: [id number] Date of Study: 02/26/2018 Ordering Physician: GAMALIEL TAM, Referring Physician: GAMALIEL TAM, Tech: VIOLA Olsen APPROVED REPORT EXAM: Two-dimensional and M-mode echocardiogram with Doppler and color Doppler. Other Information Quality : Good INDICATION Atrial Fibrillation 2D DIMENSIONS Left Atrium(2D)5.2 (1.6-4.0cm)IVSd1.0 (0.7-1.1cm) Aortic Root(2D)3.7 (2.0-3.7cm)LVDd6.1 (3.9-5.9cm) LVOT Diameter2.4 (1.8-2.4cm)PWd0.9 (0.7-1.1cm) LVDs5.2 (2.5-4.0cm)FS (%) 12.0 % SV58.2 mlLVEF(%)30.0 (>50%) Aortic Valve AoV Peak Sean.115.7cm/Magalys Peak GR.5.4mmHg LVOT Peak Sean.99.2cm/sAVA (VMAX)3.88cm2 AI P 1/2 Zfan460nd Tricuspid Valve TR P. Kencatwc454ni/sRAP RGLNKYGV4xuZj TR Peak Gr.15exKbZBIT19diRt LEFT VENTRICLE The Left Ventricle is mildly dilated. There is normal left ventricular wall thickness. The systolic f unction is moderately to severely impaired. The Ejection Fraction is 30-35%. There is moderate to sev ere global hypokinesis of the left ventricle. No left ventricle thrombus noted on this study. RIGHT VENTRICLE The right ventricle is normal size. There is normal right ventricular wall thickness. The right ventr icular systolic function is normal. ATRIA The left atrium is moderately dilated. The right atrium size is normal. There is a small PFO noted on Doppler imaging, agitated contrast saline was not performed on this study. AORTIC VALVE The aortic valve is trileaflet. Doppler and Color Flow revealed mild aortic regurgitation. There is n o significant aortic valvular stenosis. MITRAL VALVE The mitral valve is thickened but opens well. There is no mitral valve stenosis. Doppler and Color-fl ow revealed moderate mitral regurgitation. TRICUSPID VALVE The tricuspid valve is normal in structure and function. Doppler and Color Flow revealed trace to mil d tricuspid regurgitation. There is no tricuspid valve stenosis. PULMONIC VALVE Doppler and Color Flow revealed mild pulmonic valvular regurgitation. There is no pulmonic valvular s tenosis. GREAT VESSELS The aortic root is mildly enlarged. The IVC is normal in size and collapses >50% with inspiration. PERICARDIAL EFFUSION There is no pleural effusion. There is no evidence of significant pericardial effusion. Critical Notification Critical Value: No <Conclusion> The systolic function is moderately to severely impaired. The Ejection Fraction is 30-35%. There is moderate to severe global hypokinesis of the left ventricle. The Left Ventricle is mildly dilated. There is a small PFO noted on Doppler imaging, agitated contrast saline was not performed on this maria victoria dy. Doppler and Color-flow revealed moderate mitral regurgitation. Signed by : Gamaliel Tam, Electronically Approved : 02/26/2018 10:09:34
== END | disposition home or self-care (01) ==
LOC: ECHO 08:39
PROVIDERS: ATTEND Internal Medicine Cardiovascular Disease
DX: I08.8 Other rheumatic multiple valve diseases (principal); I48.1 Persistent atrial fibrillation; I11.0 Hypertensive heart disease with heart failure; I50.31 Acute diastolic (congestive) heart failure; Z87.442 Personal history of urinary calculi
CPT/HCPCS: 93306

== ENCOUNTER → 2019-05-20 | Outpatient (CLI) | payer OTHER ==
[2017-07-26 12:03] VITALS: BP 99/76
--- NOTE | 2019-05-20 16:53 | CARD ---
MR#: [id number] Date of Study: 05/20/2019 Ordering Physician: GAMALIEL TAM, Referring Physician: GAMALILE TAM, Tech: Jemima Roach RDCS APPROVED REPORT EXAM: Two-dimensional and M-mode echocardiogram with Doppler and color Doppler. Other Information Quality : AverageHR: 108bpm Rhythm : Atrial Fibrillation INDICATION Atrial Fibrillation 2D DIMENSIONS RVDd3.0 (2.9-3.5cm)Left Atrium(2D)4.2 (1.6-4.0cm) IVSd0.8 (0.7-1.1cm)Aortic Root(2D)3.8 (2.0-3.7cm) LVDd5.9 (3.9-5.9cm)LVOT Diameter2.4 (1.8-2.4cm) PWd1.2 (0.7-1.1cm)LVDs4.8 (2.5-4.0cm) FS (%) 18.7 %SV65.9 ml LVEF(%)38.1 (>50%) M-Mode DIMENSIONS Left Atrium(MM)4.56 (2.5-4.0cm)Aortic Root4.10 (2.2-3.7cm) Aortic Valve AoV Peak Sean.120.8cm/sAoV VTI18.9cm AO Peak GR.5.8mmHgLVOT Peak Sean.71.9cm/s LVOT VTI 13.25cmAO Mean GR.3mmHg MARVIN (VMAX)2.20lg4ADR (VTI)3.05cm2 Mitral Valve MV E Uiacmdqn74.2cm/sMV DECEL PHNR718ap MV A Bsyfzicz32.1cm/sE/A Ratio2.8 Pulmonary Valve PV Peak Lvijolfe806.5cm/sPV Peak Grad.5mmHg Tricuspid Valve TR P. Ksodvxce040bo/sRAP SASDYQIB4phWk TR Peak Gr.97giLmVAPL95blLo LEFT VENTRICLE The Left Ventricle is mildly dilated. There is normal left ventricular wall thickness. The systolic f unction is severely impaired. The Ejection Fraction is 30%. There is global hypokinesis of the left v entricle. Septal motion is suggestive of conduction defect. Tissue Doppler imaging reveals moderate l eft ventricular diastolic dysfunction. RIGHT VENTRICLE The right ventricle is normal size. There is normal right ventricular wall thickness. The right ventr icular systolic function is normal. ATRIA The left atrium is moderately dilated. The right atrium is mildly dilated. The interatrial septum is intact with no evidence for an atrial septal defect or patent foramen ovale as noted on 2-D or Dopple r imaging. AORTIC VALVE The aortic valve is normal in structure and function. The aortic valve is trileaflet. Doppler and Col or Flow revealed trace to mild aortic regurgitation. There is no significant aortic valvular stenosis . There is no aortic valvular vegetation. MITRAL VALVE The mitral valve is normal in structure and function. There is no evidence of mitral valve prolapse. There is no mitral valve stenosis. Doppler and Color-flow revealed mild to moderate mitral regurgitat ion. TRICUSPID VALVE The tricuspid valve is normal in structure and function. Doppler and Color Flow revealed mild tricusp id regurgitation. The PA pressure was estimated at 37 mmHg. There is no tricuspid valve prolapse or v egetation. There is no tricuspid valve stenosis. PULMONIC VALVE The pulmonary valve is normal in structure and function. Doppler and Color Flow revealed trace pulmon ic valvular regurgitation. There is no pulmonic valvular stenosis. GREAT VESSELS The aortic root is normal in size. The ascending aorta is Mildly dilated at 3.8cm. The IVC is normal in size and collapses >50% with inspiration. PERICARDIAL EFFUSION There is no evidence of significant pericardial effusion. Critical Notification Critical Value: No <Conclusion> The systolic function is severely impaired. The Ejection Fraction is 30%. There is global hypokinesis of the left ventricle. Septal motion is suggestive of conduction defect. Doppler and Color-flow revealed mild to moderate mitral regurgitation. Doppler and Color Flow revealed mild tricuspid regurgitation. The PA pressure was estimated at 37 mmH g. The ascending aorta is Mildly dilated at 3.8cm. Signed by : Gamaliel Tam, Electronically Approved : 05/20/2019 16:52:49
== END | disposition home or self-care (01) ==
LOC: ECHO 14:43
PROVIDERS: ATTEND Internal Medicine Cardiovascular Disease
DX: I08.3 Combined rheumatic disorders of mitral, aortic and tricuspid valves (principal); I48.91 Unspecified atrial fibrillation
CPT/HCPCS: 93306

== ENCOUNTER 2019-08-27 20:25 | Emergency (ER) | payer OTHER ==
[~2019-08-27] VITALS: Ht 182.9 cm; Wt 96.6 kg
[2019-08-27 20:30] VITALS: BP 126/79
--- NOTE | 2019-08-27 20:30 | PHYS DOC ---
Past History Past Medical History: Hypertension Past Surgical History: No Surgical History Alcohol Use: None Drug Use: None Adult General Chief Complaint Chief Complaint: ".. I was going down stairs.. and just missed a step... and twisted... that was about 5 pm.. but it getting more swollen and tender... " HPI HPI Patient is a 59 year old MALE who presents with above hx and complaints rt. ankle injury. Patient localizes pain to upper part of right foot and ankle. This is area of the most edema. No upper leg tenderness. No pain on percussion of malleolus. Negative foot squeeze Distal neurovascular is equal to left foot. Patient has been able to walk on with discomfort. No other injuries reported when he twisted the Rt. ankle. . Pt. follows with Dr. Villalobos. Review of Systems Review of Systems Constitutional: Denies fever or chills [] Eyes: Denies change in visual acuity, redness, or eye pain [] HENT: Denies nasal congestion or sore throat [] Respiratory: Denies cough or shortness of breath [] Cardiovascular: No additional information not addressed in HPI [] GI: Denies abdominal pain, nausea, vomiting, bloody stools or diarrhea [] : Denies dysuria or hematuria [] Musculoskeletal: Denies back pain or joint pain [. The]patient complaints of right ankle pain Integument: Denies rash or skin lesions [] Neurologic: Denies headache, focal weakness or sensory changes [] Endocrine: Denies polyuria or polydipsia [] All other systems were reviewed and found to be within normal limits, except as documented in this note. Family History Family History Noncontributory to presentation Current Medications Current Medications See nursing for home meds Allergies Allergies Allergies Coded Allergies Type Severity Reaction Last Updated Verified No Known Drug Allergies 07/24/17 No Physical Exam Physical Exam Constitutional: Well developed, well nourished, moderate acute distress, non- toxic appearance. [] HENT: Normocephalic, atraumatic, bilateral external ears normal, oropharynx moist, no oral exudates, nose normal. [] Eyes: PERRLA, EOMI, conjunctiva normal, no discharge. [] Neck: Normal range of motion, no tenderness, supple, no stridor. [] Cardiovascular: Irregular Heart rate regular and rhythm, no murmur []( Has know hx afib) Lungs & Thorax: Bilateral breath sounds equal at apex auscultation [] Abdomen: Bowel sounds normal, soft, no tenderness, no masses, no pulsatile masses. [] Skin: Warm, dry, no erythema, no rash. [] Back: No tenderness, no CVA tenderness. [] Extremities: No tenderness, no cyanosis, no clubbing, ROM intact, no edema. [] . Except findings in right ankle. Neurologic: Alert and oriented X 3, normal motor function, normal sensory function, no focal deficits noted. [] Psychologic: Affect anxious, judgement normal, mood normal. [] EKG EKG [] Radiology/Procedures Radiology/Procedures [][place] [address] IMAGING REPORT Signed PATIENT: RON JAEGER ACCOUNT: [id number] : 1960 LOCATION: ER AGE: 59 SEX: M EXAM STATUS: REG ER ORD. PHYSICIAN: CARINA BEYER MD REASON: Twisting injury on stairs tonight, pain with stiffness to ankle PROCEDURE: ANKLE RIGHT 3V Exam: Right ankle 3 views INDICATION: Twisting injury TECHNIQUE: Frontal, lateral and oblique views of the right ankle. Comparisons: None FINDINGS: Bone mineralization is normal. No acute or healed fractures. Soft tissues are unremarkable. Joint spaces are well-maintained. IMPRESSION: No acute osseous abnormality. Electronically signed by: Lopez Arvizu MD (08/27/2019 9:14 PM) [facility] DICTATED AND SIGNED BY: LOPEZ ARVIZU MD DATE: 08/27/192113 CC: DINESH VILLALOBOS MD; CARINA BEYER MD ~ Course & Med Decision Making Course & Med Decision Making Pertinent Labs and Imaging studies reviewed. (See chart for details). Ice, elevation, rest, Pete wrap, distal neurovascular intact after application of Pete wrap. Follow-up primary care. If persistent pain after 2 weeks have ankle re-x-rayed. Return if any concerns. Take Tylenol for pain. Patient deferred a vicoprofen rx. - on Coumadin. 1. Rt. Ankle Sprain [] Dragon Disclaimer Dragon Disclaimer This electronic medical record was generated, in whole or in part, using a voice recognition dictation system. Departure Departure: Disposition: HOME/RESIDENCE PRIOR TO ADM Condition: STABLE Referrals: DINESH VILLALOBOS MD (PCP) Scripts Hydrocodone/Ibuprofen (HYDROCODONE-IBUPROFEN 7.5-200 ) 1 Each Tablet 1 TAB PO PRN Q6HRS PRN for PAIN, #30 TAB 0 Refills Prov: CARINA BEYER MD 08/27/19 Christiano Disclaimer This chart was dictated in whole or in part using Voice Recognition software in a busy, high-work load, and often noisy Emergency Department environment. It may contain unintended and wholly unrecognized errors or omissions. Dragon Disclaimer This chart was dictated in whole or in part using Voice Recognition software in a busy, high-work load, and often noisy Emergency Department environment. It may contain unintended and wholly unrecognized errors or omissions. CARINA BEYER MD Aug 27, 2019 20:30
[2019-08-27] MEDS ORDERED: HYDROcodon/IBUPROFEN 7.5/200MG 1 TAB TABLET PO ONE (21:00)
--- NOTE | 2019-08-27 21:17 | RAD ---
Exam: Right ankle 3 views INDICATION: Twisting injury TECHNIQUE: Frontal, lateral and oblique views of the right ankle. Comparisons: None FINDINGS: Bone mineralization is normal. No acute or healed fractures. Soft tissues are unremarkable. Joint spaces are well-maintained. IMPRESSION: No acute osseous abnormality. Electronically signed by: Lopez Davis MD (08/27/2019 9:14 PM) [facility]
[2019-08-27] MEDS ORDERED: HYDR-1179 PO (21:38)
== END 2019-08-27 21:49 | disposition home or self-care (01) ==
LOC: ER 20:25
DX: S99.911A Unspecified injury of right ankle, initial encounter (principal); I10 Essential (primary) hypertension; X50.1XXA Overexertion from prolonged static or awkward postures, initial encounter; Y93.89 Activity, other specified; Y92.89 Other specified places as the place of occurrence of the external cause; Y99.8 Other external cause status
CPT/HCPCS: 73610; 99284

== ENCOUNTER 2019-09-07 20:34 | Inpatient (IN) | payer OTHER ==
[~2019-09-07] VITALS: Ht 182.9 cm; Wt 94.2 kg
[~2019-09-07 20:34] MED LIST changes: +HYDR-1179 PO
[2019-09-07] MEDS ORDERED: IV RINGERS SOLUTION,LACTATED 1,000 ML IV SCH (20:39)
--- NOTE | 2019-09-07 20:39 | PHYS DOC ---
Past History Past Medical History: A-Fib, Anxiety, Arthritis, CAD, Depression, Diabetes, Fibromyalgia, High Cholesterol, Heart Disease, Hypertension, Other Past Surgical History: Cholecystectomy, Other Additional Past Surgical Histo: BROKEN FEMUR Alcohol Use: None Drug Use: None Adult General Chief Complaint Chief Complaint: ".. I ve been going down here ever since I seen you for my twisted ankle.. about two weeks ago I developed an ear infection on the left ear.... And he started me on some antibiotics..... It did not seem to be improved with an and then I seen Dr. Villalobos on Sunday and he started me on this new antibiotic Cefdinir 300 twice a day... and all it did was make me really nauseated.. and get diarrhea.. I ve gone 10 x since noon... "..and Now my afib is going crazy... ".." I can't even wall across the room with out getting really short of breath..."" My heart is just going too fast..." HPI HPI Patient is a 59 year old male who presents with above hx and complaints of history left ear infection, adenopathy Lt angle of mandible and 2 courses of antibiotics. Patient started on Cefdinvir 300 twice a day on Sunday but has developed increased nausea, abdomen pain and almost constant diarrhea. Patient reports had to 10 watery stools since noon today. Patient also complaints that he was running a fever and chills. Patient also complaining of rapid irregular heart rate-( Hx. of A. fib). Patient has been compliant with his Cardizem, Metoprolol,and Eliquis 5 mg bid. Pt. normally follows with Dr. Villalobos. No recent travel or specific ill contacts. No history of bad food intake. No history immunosuppression. Pt. did receive a flu vaccination this season. Review of Systems Review of Systems Constitutional: History of fever or chills [] Eyes: Denies change in visual acuity, redness, or eye pain [] HENT: History of nasal congestion and rhinorrhea]. Complaints of adenopathy at Lt mandible angle. Respiratory: History of a nonproductive cough and shortness of breath [] Cardiovascular: No additional information not addressed in HPI [] GI: She of abdominal pain, nausea, and diarrhea [] : Denies dysuria or hematuria [] Musculoskeletal: History of generalized myalgia and arthralgia Integument: Denies rash or skin lesions [] Neurologic: Denies headache, focal weakness or sensory changes [] Endocrine: Denies polyuria or polydipsia [] All other systems were reviewed and found to be within normal limits, except as documented in this note. Family History Family History Noncontributory today's presentation Current Medications Current Medications See nursing for home meds Allergies Allergies Allergies Coded Allergies Type Severity Reaction Last Updated Verified No Known Drug Allergies 07/24/17 No Physical Exam Physical Exam Constitutional: in acute distress, ill in appearance. [] HENT: Normocephalic, atraumatic, bilateral external ears normal, TMs are normal bilaterally ,oropharynx moist, , postnasal drainage and mild erythema of the throat, no oral exudates, nose swollen turbinates and clear rhinorrhea. Does have some adenopathy at ankle of mandible. Multiple old fillings but no obvious abscess. Eyes: PERRLA, EOMI, conjunctiva normal, no discharge. [] Neck: Normal range of motion, no tenderness, supple, no stridor. [JVD in sitting position] Cardiovascular: Tachycardia Heart rate irregular and irregular rhythm, no murmur []PMI to the left ( Monitor- Afib with Intraventricular block) Lungs & Thorax: Bilateral breath sounds equal with scattered wheezes throughout on auscultation []. Has bilateral basal crackles. Abdomen: Bowel sounds hyperactive, soft, generalized tenderness, no masses, no pulsatile masses. [] Skin: Warm, diaphoretic, no erythema, no rash. Poor turgor Back: No tenderness, no CVA tenderness. [] Extremities: No tenderness, no cyanosis, no clubbing, ROM intact, no edema. Arthritic changes. Right ankle edema and ecchymosis improved from my last exam .. Old surgery scar Neurologic: Alert and oriented X 3, moves extremities on request, does have distal sensory,, no dose focal deficits noted. [] Psychologic: Affect anxious judgement normal, mood normal. [] EKG EKG My interpretation EKG shows a ventricular rhythm 132 bpm. Ill regular rate and rhythm, left axis deviation. Strain pattern. Intraventricular block.[]-Afib with rapid Vent. Rates show rates a ventricular up to 166. My interpretation of second EKG shows a ventricular rate of 122 still has A. fib with intraventricular block. Monitor shows rates that vary between 100-120's Radiology/Procedures Radiology/Procedures [][place] [address] IMAGING REPORT Signed PATIENT: RON JAEGER ACCOUNT: [id number] : 1960 LOCATION: ER AGE: 59 SEX: M EXAM STATUS: REG ER ORD. PHYSICIAN: CARINA BEYER MD REASON: dyspnea PROCEDURE: CHEST PA & LATERAL Chest PA and lateral 09/07/2019. Reason for exam: Dyspnea. Comparison is made with a prior study of 07/25/2017. There are patchy bilateral infiltrates. No pleural fluid is seen. Heart size is normal. IMPRESSION: Bilateral infiltrates. Electronically signed by: Gabino Martin Jr., MD (09/07/2019 9:13 PM) [id number] DICTATED AND SIGNED BY: GABINO MARTIN Jr, MD DATE: 09/07/192112 CC: DINESH VILLALOBOS MD; CARINA BEYER MD ~ Course & Med Decision Making Course & Med Decision Making Pertinent Labs and Imaging studies reviewed. (See chart for details) Patient admitted to with Cardiology consult. Heart Score= 7 Will hold antibiotics for now with findings of a normal white count and increased diarrhea. (Especially in light of positive influenza A). Will check for C. difficile . We will gently diurese and titrate Cardizem drip to get overall ventricular rate into the 100 or less. Critical care 60 minutes. By time patient was transferred to main hospital bed, pt. reported marked improvement of his dyspnea. Cardizem drip continued titrating before rate less than 100. Impression: 1. Fever 2. Nausea and Diarrhea 3. Dyspnea 4. Afib with rapid Vent. Response 5. Hx. Lt Ear Infection (TM clear currently- does have some adenopathy Lt. mandible angle) 6. Hypoxia ( Pt not normally on Oxygen)-respiratory failure ( Suspect both Acute CHF, Afib and Influ A as co-factors.) 7. Diabetes 8. Elevated CK 1094 9. CHF BNP 4650-diastolic dysfunction 10. Influenza A positive 11. Mild Hypokalemia 3.3 [] Dragon Disclaimer Dragon Disclaimer This electronic medical record was generated, in whole or in part, using a voice recognition dictation system. Departure Departure: Disposition: 01 HOME/RESIDENCE PRIOR TO ADM Condition: STABLE Referrals: DINESH VILLALOBOS MD (PCP) Christiano Disclaimer This chart was dictated in whole or in part using Voice Recognition software in a busy, high-work load, and often noisy Emergency Department environment. It may contain unintended and wholly unrecognized errors or omissions. Dragon Disclaimer This chart was dictated in whole or in part using Voice Recognition software in a busy, high-work load, and often noisy Emergency Department environment. It may contain unintended and wholly unrecognized errors or omissions. CARINA BEYER MD Sep 07, 2019 20:39
[2019-09-07] MEDS ORDERED: ACETAMINOPHEN 500 MG TABLET PO ONE (21:00)
[2019-09-07] MEDS ORDERED: dilTIAZem 25 MG/5 ML VIAL IVP ONE (21:00)
[2019-09-07] MEDS ORDERED: ASPIRIN 81 MG TAB.CHEW PO ONE (21:00)
[2019-09-07] MEDS ORDERED: IPRATRPIUM/ALBUTEROL 0.5/2.5MG 3 ML NEBU. NEB ONE (21:00)
[2019-09-07] MEDS ORDERED: dilTIAZem VIAL 125 MG in IV NORMAL SALINE 100ML 100 ML IV ONE ×2 (21:00→23:00)
[2019-09-07] MEDS ORDERED: IV NORMAL SALINE 100ML 100 ML ONE ×3 (21:05→21:06)
--- NOTE | 2019-09-07 21:17 | RAD ---
Chest PA and lateral 09/07/2019. Reason for exam: Dyspnea. Comparison is made with a prior study of 07/25/2017. There are patchy bilateral infiltrates. No pleural fluid is seen. Heart size is normal. IMPRESSION: Bilateral infiltrates. Electronically signed by: Navi Martin Jr., MD (09/07/2019 9:13 PM) [id number]
[2019-09-07 21:20] LABS: BASO # 0.1 x10^3/uL (0.0-0.2); BASO % 1 % (0-3); EOS % 0 % (0-3); HEMATOCRIT 44.3 % (39.0-53.0); HEMOGLOBIN 14.3 g/dL (13.0-17.5); LYMPH # 1.1 x10^3/uL (1.0-4.8); LYMPH % 14 % (24-48); MEAN CORPUSCULAR HEMOGLOBIN 31 pg (25-35); MEAN CORPUSCULAR HGB CONC 32 g/dL (31-37); MEAN CORPUSCULAR VOLUME 98 fL (79-100); MONO # 0.6 x10^3/uL (0.0-1.1); MONO % 8 % (0-9); NEUT # 5.8 x10^3uL (1.8-7.7); NEUT % 77 % (31-73); PLATELET COUNT 246 x10^3/uL (140-400); RED BLOOD COUNT 4.54 x10^6/uL (4.30-5.70); RED CELL DISTRIBUTION WIDTH 15.5 % (11.5-14.5); WHITE BLOOD COUNT 7.6 x10^3/uL (4.0-11.0)
[2019-09-07 21:22] LABS: CALCIUM 8.4 mg/dL (8.5-10.1); CREATININE 1.3 mg/dL (0.7-1.3); GFR 56.5; POTASSIUM 3.3 mmol/L (3.5-5.1)
[2019-09-07 21:23] LABS: BARBITURATES NEG (NEG); BENZODIAZEPINES NEG (NEG); CANNABINOIDS NEG (NEG); COCAINE NEG (NEG); METHADONE NEG (NEG); OPIATES POS (NEG); PHENCYCLIDINE NEG (NEG)
[2019-09-07 21:32] LABS: BILIRUBIN,URINE NEG (NEG); CLARITY,URINE HAZY; COLOR,URINE YELLOW; GLUCOSE,URINE NEG (NEG); NITRITE,URINE NEG (NEG); UROBILINOGEN,URINE 0.2 mg/dL (0.2 mg/dL)
[2019-09-07 21:33] LABS: BACTERIA,URINE 0 /HPF (0-FEW); SQUAMOUS EPITHELIAL CELL,UR OCC /LPF
[2019-09-07 21:35] LABS: HYALINE CASTS, URINE OCC /HPF
[2019-09-07 21:38] LABS: ALBUMIN 3.6 g/dL (3.4-5.0); DIRECT BILIRUBIN 0.2 mg/dL (0.0-0.2); MAGNESIUM 1.9 mg/dL (1.8-2.4); TOTAL BILIRUBIN 0.6 mg/dL (0.2-1.0); TOTAL PROTEIN 7.7 g/dL (6.4-8.2)
[2019-09-07 21:39] LABS: INFLUENZA A PATIENT POSITIVE (NEGATIVE); INFLUENZA B PATIENT NEGATIVE (NEGATIVE)
[2019-09-07 21:41] LABS: AMPHETAMINE/METHAMPHETAMINE NEG (NEG)
[2019-09-07] MEDS ORDERED: ONDANSETRON PF 4 MG/2 ML VIAL. IV PRN (22:00)
[2019-09-07] MEDS ORDERED: POTASSIUM CHLORIDE 20 MEQ TABLET.ER. PO ONE (22:15)
[2019-09-07] MEDS ORDERED: FUROSEMIDE 40 MG/4 ML VIAL IVP ONE (22:15)
[2019-09-07] MEDS: APIXABAN 5 MG TABLET. PO SCH (23:00)
--- NOTE | 2019-09-07 23:30 | NUR ---
ADMISSION: The patient, RON JAEGER, 59 y/o, M admitted by LAURA SAHNI MD, was given written information regarding hospital policies, unit procedures and contact persons. Pt arrived to ICU bed 4 via gurney, accompanied by [facility] and nursing sup. Pt here for c/o fatigue and worsening SOA since Sunday when he was seen by his PCP and prescribed Cefdinir for an ear infection. Dx: Afib RVR, hypoxia, CHF, Flu A (+). Pt placed in droplet precautions per protocol. Pt also reports diarrhea since starting PO antibiotic. Stool sample collected in ED and sent to lab, pending C. dif. Contact plus sign also placed on door. Pt came up with cardizem gtt running at 10mg/hr. Placed on telemetry, showing irregular rate and rhythm ranging 100-130's. BP stable. Wearing 2L O2 via NC to keep sats >90%, which he does not have at home. PMH and home meds reviewed. Pt lives at home with his mother, Patricia. 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 Flu Shot UTD. On [employer] for VTE. Fluids at bedside and call light in reach. Valuables were checked and logged. Left in room with patient.
[2019-09-07 23:40] VITALS: BP 122/83
[2019-09-07 23:45] VITALS: BP 117/78
[2019-09-08] VITALS (32 sets, daily range): BP systolic 94–135; BP diastolic 67–98
[2019-09-08] MEDS: OSELTAMIVIR 75 MG CAPSULE PO SCH ×3 (00:08→21:05)
[2019-09-08] MEDS: MORPHINE SULFATE 2 MG/ML DISP.SYRIN. IV PRN ×2 (00:08→21:06)
--- NOTE | 2019-09-08 00:43 | NUR ---
Pt reports he took 5 doses of his home Cefdinir and stopped on Sunday, due to upset stomach and diarrhea.
[2019-09-08 01:22] LABS: BGAS PH 7.51 (7.35-7.46)
[2019-09-08] MEDS ORDERED: METO-247 PO (01:37)
[2019-09-08] MEDS ORDERED: CEFD300C PO (01:37)
[2019-09-08] MEDS ORDERED: IPRATRPIUM/ALBUTEROL 0.5/2.5MG 3 ML NEBU. ONE (04:50)
[2019-09-08] MEDS: IPRATRPIUM/ALBUTEROL 0.5/2.5MG 3 ML NEBU. NEB SCH ×4 (05:16→21:07)
[2019-09-08 06:37] LABS: BASO % 1 % (0-3); EOS % 0 % (0-3); HEMATOCRIT 41.7 % (39.0-53.0); HEMOGLOBIN 13.5 g/dL (13.0-17.5); LYMPH # 1.4 x10^3/uL (1.0-4.8); LYMPH % 20 % (24-48); MEAN CORPUSCULAR HEMOGLOBIN 31 pg (25-35); MEAN CORPUSCULAR HGB CONC 33 g/dL (31-37); MEAN CORPUSCULAR VOLUME 97 fL (79-100); MONO # 0.5 x10^3/uL (0.0-1.1); MONO % 8 % (0-9); NEUT # 5.1 x10^3uL (1.8-7.7); NEUT % 72 % (31-73); PLATELET COUNT 235 x10^3/uL (140-400); RED CELL DISTRIBUTION WIDTH 15.5 % (11.5-14.5); WHITE BLOOD COUNT 7.1 x10^3/uL (4.0-11.0)
--- NOTE | 2019-09-08 06:37 | EKG ---
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
--- NOTE | 2019-09-08 06:38 | EKG ---
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
[2019-09-08 06:42] LABS: CALCIUM 8.2 mg/dL (8.5-10.1); CREATININE 1.2 mg/dL (0.7-1.3); POTASSIUM 3.1 mmol/L (3.5-5.1)
[2019-09-08] MEDS ORDERED: dilTIAZem VIAL 125 MG in IV NORMAL SALINE 100ML 100 ML IV PRN ×2 (07:45→18:45)
--- NOTE | 2019-09-08 07:49 | PDOC2 ---
CARDIAC CONSULT DATE OF CONSULT Date Of Consult DATE: 09/08/19 TIME: 07:47 REASON FOR CONSULT Reason for Consult AFIB with RVR CHF REFERRING PHYSICIAN Referring Physician Dr. Sanchez SOURCE Source: Chart review, Patient HPI History of Present Illness This is a 59 yo male, who presented with complaints of ear infection, shortness of breath, and palpitations. Patient report having ear infect that began this past week. Saw PCP late last week and was place on antibiotic therapy. Began having diarrhea over the weekend and then on Sunday felt very short of breath and could tell his heart rate was rapid. Stopped taking the antibiotic and came to the ED for further evaluation and treatment. Was noted in AFIB with RVR and started on Cardizem gtt. Follow with our office with Dr. Patel. Has chronic AFIB. Used unsuccessful cardioversion in 2018. At most recent visit. Cardizem was discontinued and patient was to start Entresto for HF optimization. LHC was discussed at that time, and patient was consider after the first of the year. Unfortunately, patient was unable to afford Entresto. Office [place] working on assistance program for Entresto, but did not having working number for patient. He has continued his cardizem. PAST MEDICAL HISTORY Cardiovascular: AFIB, CHF, HTN PAST SURGICAL HISTORY Past Surgical History: Hernia Repair, Other (cardioversion) FAMILY HISTORY Family History: Coronary Artery Disease (father ), Hypertension SOCIAL HISTORY Smoke: No ALCOHOL: none Drugs: None Lives: with Family CURRENT MEDICATIONS Current Medications Current Medications Aspirin (Children'S Aspirin) 324 mg 1X ONCE PO Last administered on 09/07/19at 21:00; Start 09/07/19 at 21:00; Stop 09/07/19 at 21:01; Status DC Lactated Ringer's 1,000 ml @ 100 mls/hr Q10H IV Last administered on 09/07/19at 20:39; Start 09/07/19 at 20:39; Stop 09/08/19 at 06:39; Status DC Albuterol/ Ipratropium (Duoneb) 3 ml 1X ONCE NEB Last administered on 09/07/19at 21:16; Start 09/07/19 at 21:00; Stop 09/07/19 at 21:01; Status DC Diltiazem HCl 125 mg/Sodium Chloride 125 ml @ 5 mls/hr 1X ONCE IV Last administered on 09/07/19at 21:00; Start 09/07/19 at 21:00; Stop 09/08/19 at 21:59 Diltiazem HCl (Cardizem Iv Push) 10 mg 1X ONCE IVP Last administered on 09/07/19at 21:00; Start 09/07/19 at 21:00; Stop 09/07/19 at 21:01; Status DC Acetaminophen (Tylenol) 1,000 mg 1X ONCE PO Last administered on 09/07/19at 21: 00; Start 09/07/19 at 21:00; Stop 09/07/19 at 21:01; Status DC Sodium Chloride 100 ml @ As Directed STK-MED ONCE .ROUTE ; Start 09/07/19 at 21:05; Stop 09/07/19 at 21:05; Status DC Diltiazem HCl (Cardizem) 125 mg STK-MED ONCE IV ; Start 09/07/19 at 21:05; Stop 09/07/19 at 21:05; Status DC Sodium Chloride 100 ml @ As Directed STK-MED ONCE .ROUTE ; Start 09/07/19 at 21:05; Stop 09/07/19 at 21:06; Status DC Sodium Chloride 100 ml @ As Directed STK-MED ONCE .ROUTE ; Start 09/07/19 at 21:06; Stop 09/07/19 at 21:06; Status DC Potassium Chloride (Klor-Con) 40 meq 1X ONCE PO Last administered on 09/07/19at 21:58; Start 09/07/19 at 22:15; Stop 09/07/19 at 22:16; Status DC Furosemide (Lasix) 40 mg 1X ONCE IVP Last administered on 09/07/19at 21:58; Start 09/07/19 at 22:15; Stop 09/07/19 at 22:16; Status DC Ondansetron HCl (Zofran) 4 mg PRN Q4HRS PRN IV NAUSEA/VOMITING; Start 09/07/19 at 22:00; Stop 09/08/19 at 21:59 Morphine Sulfate (Morphine 2mg Syringe) 2 mg PRN Q4HRS PRN IV PAIN Last administered on 09/08/19at 00:08; Start 09/07/19 at 22:00; Stop 09/08/19 at 21:59 Acetaminophen (Tylenol) 650 mg PRN Q4HRS PRN PO FEVER; Start 09/07/19 at 22:00; Stop 09/08/19 at 21:59 Albuterol/ Ipratropium (Duoneb) 3 ml RTQID NEB Last administered on 09/08/19at 05:16; Start 09/08/19 at 08:00; Stop 09/09/19 at 07:59 Oseltamivir Phosphate (Tamiflu) 75 mg BID PO Last administered on 09/08/19at 00:08; Start 09/07/19 at 22:30; Stop 09/12/19 at 22:29 Apixaban (Eliquis) 5 mg BID PO ; Start 09/07/19 at 23:00 Diltiazem HCl 125 mg/Sodium Chloride 125 ml @ 5 mls/hr 1X ONCE IV ; Start 09/07/19 at 23:00; Stop 09/08/19 at 07:32; Status DC Albuterol/ Ipratropium (Duoneb) 3 ml STK-MED ONCE .ROUTE ; Start 09/08/19 at 04:50; Stop 09/08/19 at 04:50; Status DC Diltiazem HCl 125 mg/Sodium Chloride 125 ml @ 5 mls/hr CONT PRN IV SEE I/O RECORD Last administered on 09/08/19at 07:44; Start 09/08/19 at 07:45 Potassium Chloride (Klor-Con) 40 meq 1X ONCE PO ; Start 09/08/19 at 07:45; Stop 09/08/19 at 07:46; Status UNV Ceftriaxone Sodium 2 gm/ Sodium Chloride 100 ml @ 200 mls/hr Q24H IV ; Start 09/08/19 at 07:45; Status UNV Active Scripts Active Hydrocodone-Ibuprofen 7.5-200 (Hydrocodone/Ibuprofen) 1 Each Tablet 1 Tab PO PRN Q6HRS PRN Eliquis (Apixaban) 5 Mg Tablet 5 Mg PO BID 30 Days Cardizem Cd (Diltiazem Hcl) 240 Mg Cap.er.24h 1 Cap PO DAILY Reported Metoprolol Succinate ( Xl ) (Metoprolol Succinate) 100 Mg Tab.er.24h 100 Mg PO DAILY Cefdinir 300 Mg Capsule 300 Mg PO Q12HR ALLERGIES Allergies: Coded Allergies: No Known Drug Allergies (Unverified , 07/24/17) ROS Review of Systems 14 point ROS conducted with pertinent positives noted above in HPI PHYSICAL EXAM General: Alert, Oriented X3, Cooperative, No acute distress HEENT: Atraumatic, Mucous membr. moist/pink Lungs: Other (fine expiratory wheezes) Heart: Other (AFIB rate 110-125) Abdomen: No tenderness Extremities: No edema, Normal pulses Skin: No breakdown Neuro: Normal speech, Sensation intact Psych/Mental Status: Mental status NL, Mood NL MUSCULOSKELETAL: Osteoarthritic changes both hands VITALS Vital Signs Vital Signs Date Time Temp Pulse Resp B/P (MAP) Pulse Ox O2 Delivery O2 Flow Rate FiO2 09/08/19 06:35 107 14 123/75 (91) 93 Nasal Cannula 2.0 09/08/19 05:00 98.5 LABS LABS Laboratory Tests Test 09/07/19 20:37 09/07/19 20:39 09/08/19 05:48 White Blood Count 7.6 x10^3/uL (4.0-11.0) 7.1 x10^3/uL (4.0-11.0) Red Blood Count 4.54 x10^6/uL (4.30-5.70) 4.30 x10^6/uL (4.30-5.70) Hemoglobin 14.3 g/dL (13.0-17.5) 13.5 g/dL (13.0-17.5) Hematocrit 44.3 % (39.0-53.0) 41.7 % (39.0-53.0) Mean Corpuscular Volume 98 fL (79-100) 97 fL (79-100) Mean Corpuscular Hemoglobin 31 pg (25-35) 31 pg (25-35) Mean Corpuscular Hemoglobin Concent 32 g/dL (31-37) 33 g/dL (31-37) Red Cell Distribution Width 15.5 % (11.5-14.5) 15.5 % (11.5-14.5) Platelet Count 246 x10^3/uL (140-400) 235 x10^3/uL (140-400) Neutrophils (%) (Auto) 77 % (31-73) 72 % (31-73) Lymphocytes (%) (Auto) 14 % (24-48) 20 % (24-48) Monocytes (%) (Auto) 8 % (0-9) 8 % (0-9) Eosinophils (%) (Auto) 0 % (0-3) 0 % (0-3) Basophils (%) (Auto) 1 % (0-3) 1 % (0-3) Neutrophils # (Auto) 5.8 x10^3uL (1.8-7.7) 5.1 x10^3uL (1.8-7.7) Lymphocytes # (Auto) 1.1 x10^3/uL (1.0-4.8) 1.4 x10^3/uL (1.0-4.8) Monocytes # (Auto) 0.6 x10^3/uL (0.0-1.1) 0.5 x10^3/uL (0.0-1.1) Eosinophils # (Auto) 0.0 x10^3/uL (0.0-0.7) 0.0 x10^3/uL (0.0-0.7) Basophils # (Auto) 0.1 x10^3/uL (0.0-0.2) 0.0 x10^3/uL (0.0-0.2) Prothrombin Time 11.9 SEC (9.4-11.4) Prothromb Time International Ratio 1.1 (0.9-1.1) Activated Partial Thromboplast Time 32 SEC (23-33) D-Dimer (Salima) 0.59 mg/L (0.00-0.50) Urine Collection Type Unknown Urine Color Yellow Urine Clarity Hazy Urine pH 6.0 Urine Specific [place] >=1.030 Urine Protein 100 mg/dl (NEG-TRACE) Urine Glucose (UA) Neg mg/dL (NEG) Urine Ketones (Stick) Neg mg/dL (NEG) Urine Blood Small (NEG) Urine Nitrite Neg (NEG) Urine Bilirubin Neg (NEG) Urine Urobilinogen Dipstick 0.2 mg/dL (0.2 mg/dL) Urine Leukocyte Esterase Neg (NEG) Urine RBC 1-2 /HPF (0-2) Urine WBC 1-4 /HPF (0-4) Urine Squamous Epithelial Cells Occ /LPF Urine Bacteria 0 /HPF (0-FEW) Urine Hyaline Casts Occ /HPF Urine Mucus Mod /LPF Sodium Level 141 mmol/L (136-145) 142 mmol/L (136-145) Potassium Level 3.3 mmol/L (3.5-5.1) 3.1 mmol/L (3.5-5.1) Chloride Level 102 mmol/L (98-107) 103 mmol/L (98-107) Carbon Dioxide Level 29 mmol/L (21-32) 29 mmol/L (21-32) Anion Gap 10 (6-14) 10 (6-14) Blood Urea Nitrogen 11 mg/dL (8-26) 11 mg/dL (8-26) Creatinine 1.3 mg/dL (0.7-1.3) 1.2 mg/dL (0.7-1.3) Estimated GFR (Cockcroft-Gault) 56.5 62.0 Glucose Level 117 mg/dL (70-99) 120 mg/dL (70-99) Calcium Level 8.4 mg/dL (8.5-10.1) 8.2 mg/dL (8.5-10.1) Magnesium Level 1.9 mg/dL (1.8-2.4) Total Bilirubin 0.6 mg/dL (0.2-1.0) Direct Bilirubin 0.2 mg/dL (0.0-0.2) Aspartate Amino Transf (AST/SGOT) 47 U/L (15-37) Alanine Aminotransferase (ALT/SGPT) 44 U/L (16-63) Alkaline Phosphatase 60 U/L (46-116) Creatine Kinase 1094 U/L (39-308) Troponin I Quantitative 0.033 ng/mL (0-0.055) RR-Rgt-A-Type Natriuretic Peptide 4650 pg/mL (0-124) Total Protein 7.7 g/dL (6.4-8.2) Albumin 3.6 g/dL (3.4-5.0) Lipase 122 U/L (73-393) Urine Opiates Screen Pos (NEG) Urine Methadone Screen Neg (NEG) Urine Barbiturates Neg (NEG) Urine Phencyclidine Screen Neg (NEG) Urine Amphetamine/Methamphetamine Neg (NEG) Urine Benzodiazepines Screen Neg (NEG) Urine Cocaine Screen Neg (NEG) Urine Cannabinoids Screen Neg (NEG) Urine Ethyl Alcohol Neg (NEG) Influenza Type A (Rapid) Positive (NEGATIVE) Influenza Type B (Rapid) Negative (NEGATIVE) Blood Gas pH 7.51 (7.35-7.46) Blood Gas PCO2 29 mmHg (35-46) Blood Gas PO2 54 mmHg (80-100) Blood Gas HCO3 23 mmol/L (21-28) Arterial Bld O2 Saturation (Calc) 91 % (92-99) FiO2 21 % ECHOCARDIOGRAM Echocardiogram DASIA <Conclusion> Left ventricle systolic function is severely impaired. The Ejection Fraction is 15-20%. Cannot rule out apical ventricular thrombus There is a small PFO noted on Doppler imaging, agitated contrast saline was not performed on this study. Doppler and Color-flow revealed moderate mitral regurgitation. Doppler and Color Flow revealed mild tricuspid regurgitation. Successful cardioversion to SR. DATE: 09/24/17 1305 <Conclusion> The systolic function is severely impaired. The Ejection Fraction is 30%. There is global hypokinesis of the left ventricle. Septal motion is suggestive of conduction defect. Doppler and Color-flow revealed mild to moderate mitral regurgitation. Doppler and Color Flow revealed mild tricuspid regurgitation. The PA pressure was estimated at 37 mmHg. The ascending aorta is Mildly dilated at 3.8cm. DATE: 05/20/19 1514 STRESS TEST Stress Test Conclusion 1. Limited exercise tolerance with the patient walking for 3 minutes and 44 seconds on a Edis protocol. 2. Baseline atrial fibrillation with no ST segment changes with exertion diagnostic of ischemia 3. PVCs at rest with increased arrhythmias with exertion and during rest with 5 beats of wide complex tachycardia. 4. Nuclear imaging shows a probable infarct in the distal anterior apical region with a moderate amount of riley-infarction ischemia. 5. Poor LV systolic function with an ejection fraction of 21% and severe global hypokinesis. 6. Moderately high risk Lexiscan nuclear stress test. DATE: 09/19/17 6838 ASSESSMENT/PLAN Assessment/Plan 1. Acute respiratory failure with acute/chronic CHF 2. Influenza A, fevers 3. Chronic AFIB with RVR; non-responsive to cardioversion. On Eliquis for stroke prevention. Rate mildly elevated on Cardizem gtt. 4. Acute on chronic systolic CHF; better compensated following diuresis 5. H/o NICM; LVEF 30% 6. Hypokalemia Recommendations Resume metoprolol for rate control Continue Eliquis for stroke prophylaxis Continue Cardizem for now, although not ideal with CMP. Will discuss with primary stave machine tender Correct telephone number obtained; will have office work on assistance program to obtain Entresto for HF optimization Replace K. Check Mg and replace as warranted Needs further ischemic workup with [facility] [place]. Patient considering this summer. Concerns that he started new job and is unable to take off. LUCIUS PAYTON APRN Sep 08, 2019 07:49
--- NOTE | 2019-09-08 08:20 | NUR ---
IP: patient tested + influenza, requires droplet precautions until 5 days of treatment and no fever x 24 hours, whichever is longer.
[2019-09-08] MEDS: APIXABAN 5 MG TABLET. PO SCH ×2 (08:22→21:05)
[2019-09-08] MEDS ORDERED: POTASSIUM CHLORIDE 20 MEQ TABLET.ER. PO ONE (08:30)
[2019-09-08] MEDS: METOPROLOL SUCC 24HR ER 50 MG TAB.ER.24H. PO SCH (08:53)
[2019-09-08] MEDS: ACETAMINOPHEN 325 MG TABLET PO PRN ×2 (10:53→21:06)
[2019-09-08] MEDS ORDERED: ANTI-COAG MONITOR BY PHARMACY. MC PRN (13:30)
--- NOTE | 2019-09-08 13:37 | HP ---
ADMIT DATE: 09/07/2019 HISTORY OF PRESENT ILLNESS: The patient is a 59-year-old male patient who came to the Emergency Room with a complaint of shortness of breath. Apparently, he was seen by primary care physician for earache. His left ear, treated with Augmentin, that did not seem to improve and he saw again his Dr. Villalobos on Sunday, started him on cefdinir 300 mg twice a day and that make him very nauseous and got diarrhea. He said that he has about 10 episodes of diarrhea since yesterday afternoon and his heart rate becomes extremely elevated and became extremely short of breath. His heart is going too fast. He was evaluated in the Emergency Room as he continued to have fever as well as diarrhea, although he has also had abdominal pain and almost constant diarrhea. He has about total of 10 watery stools. He also complained of rapid irregular heart rate, as he is known to have atrial fibrillation for which he was on Cardizem, metoprolol and Eliquis. He is normally followed by his primary care physician, Dr. 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 He apparently had had received his flu vaccination this season. He was investigated in the Emergency Room, was found to have hypokalemia. His CK was high at 1094 as a troponin was slightly elevated at 0.033. His influenza A was positive. His urinalysis was essentially unremarkable and toxic screen was positive for opiates. His chest x-ray showed the patient has bilateral patchy infiltrate with a normal heart size and No pleural fluid is seen. The patient was admitted with atrial fibrillation with rapid ventricular response, hypokalemia as well as pneumonia, was in fact started on a Cardizem drip, received his oral metoprolol and oral Cardizem as well as started on Tamiflu 75 mg twice a day. PAST MEDICAL HISTORY: Significant for hypertension, hyperlipidemia and atrial fibrillation. He apparently was cardioverted twice. He has had positive stress test about 2 years ago. PAST SURGICAL HISTORY: Significant for cholecystectomy, hernia repair, tonsillectomy. ALLERGIES: He has no known drug allergies. MEDICATIONS: He is currently on following medications: He is on cefdinir 300 mg twice a day, apixaban 5 mg twice a day, metoprolol succinate 100 mg p.o. daily, diltiazem 240 mg once a day and hydrocodone/ibuprofen 7.5/200 one tablet every 6 hours. FAMILY HISTORY: He has one brother younger and has also heart problems. His father is alive at age 81, has coronary artery disease, status post PCI with stent deployment, peripheral vascular disease and COPD. His mother is still alive and she has also atrial fibrillation. SOCIAL HISTORY: He is twice. He has 2 sons and 1 daughter. He never smoked, does not drink alcohol. 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 REVIEW OF SYSTEMS: The patient denies any blurring of vision, cataract, glaucoma or macular degeneration. Denied any earache, tinnitus or sensorineural deafness. Denied any nosebleeds, stuffy nose or postnasal drip. Denied any sore throat, sore tongue, toothache, hoarseness of voice or difficulty swallowing. Did have some nausea and vomiting as well as multiple episodes of diarrhea. Denied any dysuria, frequency or hematuria. Denied any chest pain. Did complain of shortness of breath. Denied any cough, phlegm or hemoptysis. PHYSICAL EXAMINATION: GENERAL: On arrival to the Emergency Room, he looked well and was clearly in no apparent respiratory distress. No pallor, jaundice, cyanosis or thyromegaly. No jugular venous distention. No lower limb edema. VITAL SIGNS: His heart rate on arrival was 156, blood pressure ___/111, temperature was 101.5, respiratory rate was 20, and oxygen saturation was 92%. HEAD, EYES, EARS, NOSE AND THROAT: Showed normocephalic, atraumatic. NECK: Supple. HEART: Showed normal first and second heart sounds. No gallop or murmur. CHEST: Showed central trachea, equal bilateral expansion, air entry, vesicular sounds with bilateral basal crepitation mostly posteriorly. ABDOMEN: Distended, soft, nontender. NEUROLOGIC: He was awake, alert, responding appropriately. All his cranial nerves are intact. EXTREMITIES: He moves extremities without difficulty. LABORATORY DATA: His lab work on arrival showed a white cell count 7600, hemoglobin 14, hematocrit 44, MCV 98 and platelet count of 246,000. Blood gas showed a pH of 7.51, pCO2 of 29, pO2 of 54, bicarbonate 23, and oxygen saturation was 91% and FiO2 of 21%. His prothrombin time, INR and APTT are all normal. D-dimer was slightly elevated at 0.59. His chemistry showed a serum sodium 141, potassium 3.3, chloride 102, bicarbonate 29, anion gap was 10, BUN 11, creatinine 1.3, estimated GFR was 56 mL per minute, his glucose was 117, calcium was 8.4, magnesium was 1.9. Total bilirubin, AST, ALT, and alkaline phosphatase are normal. His CK was slightly elevated at 1094. His first set of cardiac enzymes showed troponin to be less than 0.033. Brain natriuretic peptide was 4650. Total protein was 7.7, albumin 3.6. Lipase was 122. His urinalysis was unremarkable and toxic screen was positive for opiates only. His chest x-ray showed that there are patchy bilateral infiltrate, no pleural fluid is seen, heart size is normal. IMPRESSION: In summary, this is a 59-year-old male patient, who was admitted with influenza A, for which he was started on Tamiflu. He has also Community-acquired pneumonia for which he is on Rocephin. I will add Zithromax. He has also diarrhea, which we sent stool for C. diff, the result of which is still pending at the time of this dictation. He has chronic systolic congestive heart failure with ejection fraction of only 30% according to an echocardiogram done about a year ago. PLAN: To continue with IV ceftriaxone, continue with Zithromax to cover the atypical pneumonia and decide the further management accordingly. LAURA SAHNI MD DR: AMINA/rula JOB#: [id number] / [id number]
--- NOTE | 2019-09-08 16:00 | NUR ---
PT starting to feel a little better. Pt did have a temp of 100.7 F today. Pt was up to chair and commode. Pt reports dypnea with exertion. PT HR was 130-140's this AM AFIB with BBB. Pt maxed out on cardizem IV 15 mg. Cardiology SKIP MINER Melva instructed to give home does of cardizem and metoprolol. Gave cardizem, then an hour later bp was stable and metoprolol was given. Pt HR was 90-100's most of day and increased with exertion.Was never instructed to turn off cardizem drip, HR was still > 100 most of day even with PO medications on board. Pt bp did start to trend down, as well as HR, and cardizem gtt now at 5 mg. Awaiting cardiology recommendation. Per Melva, pt was actually supposed to be taking Entresto due to his EF, however, pt was unable to afford entreto and was left on cardizem and metoprolol. She also reported pt needs a cath r/t abn mpi and low EF. PT refusing and saying he can do in February when he has FMLA available at job. PT is able to verbalize understanding and poc. PT on 2 L NC 9% with nebs. Pt did advance to cardiac diet and has had minimal episodes of diarrhea today. Awaiting cdiff result. Malik OLSEN BSN CMSRN [facility]
[2019-09-09] VITALS (24 sets, daily range): BP systolic 86–129; BP diastolic 54–98
--- NOTE | 2019-09-09 01:27 | NUR ---
PT RESTING COMFORTABLY FOR THE PAST FEW HOURS. CARDIZEM GTT HAS REMAINED RUNNING AT 5MG/HR SINCE BEGINNING OF SHIFT. PT STILL AFIB WITH BBB, BUT HR NOW 60-80'S. BP STABLE. GTT HELD AT THIS TIME.
--- NOTE | 2019-09-09 02:06 | PN ---
DATE: 09/08/2019 SUBJECTIVE: The patient is resting slightly propped up in bed, in no apparent distress. He is feeling much better. He is not short of breath as was yesterday. His diarrhea is subsiding. His heart rate, however, continued to be elevated despite treatment with Cardizem drip, oral Cardizem as well as metoprolol. He continued to spike his temperature and this morning it went up to 100.6. He was on Augmentin and also cefdinir that he could not tolerate and therefore, I decided to switch him to Levaquin that should cover both the typical and atypical organisms. OBJECTIVE: VITAL SIGNS: When I saw him this afternoon, his heart rate was around 100, blood pressure was 116/91, temperature 100.9, respiratory rate was 20 and oxygen saturation was 91% on 2 liters of oxygen. HEAD, EYES, EARS, NOSE AND THROAT: Normocephalic, atraumatic. NECK: Supple. HEART: Regular first heart sound, normal second heart sound. CHEST: Shows central trachea, equal bilateral expansion, air entry, vesicular sounds with bilateral basal crepitation mostly posteriorly. ABDOMEN: Distended, soft, nontender. NEUROLOGIC: He was awake, alert, responding appropriately. Cranial nerves are intact. He moves extremities without difficulty, ambulates without assistance or assistive devices. His intake over the last 24 hours was 1460, output was 1600. LABORATORY DATA: As of this morning, his white cell count was 7100, hemoglobin 13.5, hematocrit 42, MCV 97 and platelet count 235,000. His prothrombin time was 11.9, INR 1.1, aPTT 3200 and D-dimer was slightly elevated at 0.59. His chemistry this morning showed a serum sodium of 142, potassium 3.1, chloride 103, bicarbonate 29, anion gap of 10, BUN 11, creatinine 1.2, estimated GFR was 62 mL per minute. His glucose 120, calcium was 8.2, magnesium was 1.9. Second set of cardiac enzymes showed troponin to be 0.044. His influenza A was positive, B was negative. ASSESSMENT: 1. Influenza A, for which he is on Tamiflu 75 mg twice a day. 2. Atrial fibrillation with rapid ventricular response, heart rate still not optimally controlled despite being on Cardizem drip, oral Cardizem, metoprolol and he is also on Eliquis for stroke prevention. 3. Community-acquired pneumonia for which I switched him to Levaquin. 4. He has acute on chronic systolic congestive heart failure, likely due to nonischemic cardiomyopathy. PLAN: My plan is to switch him to Levaquin 750 mg IV once a day, discontinue Rocephin and meanwhile, continue with all other medications. LAURA SAHNI MD DR: AMINA/rula JOB#: [id number] / [id number]
[2019-09-09] MEDS: IPRATRPIUM/ALBUTEROL 0.5/2.5MG 3 ML NEBU. NEB SCH ×3 (05:41→15:06)
[2019-09-09 06:44] LABS: HEMATOCRIT 42.6 % (39.0-53.0); HEMOGLOBIN 13.7 g/dL (13.0-17.5); RED BLOOD COUNT 4.38 x10^6/uL (4.30-5.70); RED CELL DISTRIBUTION WIDTH 15.5 % (11.5-14.5); WHITE BLOOD COUNT 6.9 x10^3/uL (4.0-11.0)
[2019-09-09 06:59] LABS: ALBUMIN/GLOBULIN RATIO 0.7 (1.0-1.7); CALCIUM 8.2 mg/dL (8.5-10.1); CREATININE 1.1 mg/dL (0.7-1.3); GFR 68.5; POTASSIUM 3.2 mmol/L (3.5-5.1); TOTAL BILIRUBIN 0.8 mg/dL (0.2-1.0); TOTAL PROTEIN 7.2 g/dL (6.4-8.2)
[2019-09-09] MEDS ORDERED: DIGOXIN IV 500 MCG/2 ML AMPUL. IV STA (08:54)
[2019-09-09] MEDS: OSELTAMIVIR 75 MG CAPSULE PO SCH ×2 (08:55→21:45)
[2019-09-09] MEDS: METOPROLOL SUCC 24HR ER 50 MG TAB.ER.24H. PO SCH (08:55)
[2019-09-09] MEDS: APIXABAN 5 MG TABLET. PO SCH ×2 (08:56→21:45)
--- NOTE | 2019-09-09 11:30 | PDOC ---
LUCIUS PAYTON RAILWAY SIGNAL ELECTRICIAN 09/09/19 1129: CARDIO Progress Notes Date & Time Date of Service DATE: 09/09/19 TIME: 11:22 Time of Evaluation 0920 Subjective Notes slight dizzy, diaphoretic with elevated heart rate. Vitals Vitals Vital Signs Date Time Temp Pulse Resp B/P (MAP) Pulse Ox O2 Delivery O2 Flow Rate FiO2 09/09/19 10:27 144 135/90 09/09/19 06:00 99.1 17 95 Room Air 09/09/19 05:00 2.0 Weight Weight [ ] Input and Output I.O. Intake and Output 09/09/19 07:00 Intake Total 2254 ml Output Total 1550 ml Balance 704 ml Intake Oral 1750 ml IV Total 504 ml Output Urine Total 1550 ml # Voids 7 # Bowel Movements 4 Laboratory Labs Laboratory Tests Test 09/07/19 20:37 09/07/19 20:39 09/07/19 23:26 09/08/19 05:48 White Blood Count 7.6 x10^3/uL (4.0-11.0) 7.1 x10^3/uL (4.0-11.0) Red Blood Count 4.54 x10^6/uL (4.30-5.70) 4.30 x10^6/uL (4.30-5.70) Hemoglobin 14.3 g/dL (13.0-17.5) 13.5 g/dL (13.0-17.5) Hematocrit 44.3 % (39.0-53.0) 41.7 % (39.0-53.0) Mean Corpuscular Volume 98 fL (79-100) 97 fL (79-100) Mean Corpuscular Hemoglobin 31 pg (25-35) 31 pg (25-35) Mean Corpuscular Hemoglobin Concent 32 g/dL (31-37) 33 g/dL (31-37) Red Cell Distribution Width 15.5 % (11.5-14.5) 15.5 % (11.5-14.5) Platelet Count 246 x10^3/uL (140-400) 235 x10^3/uL (140-400) Neutrophils (%) (Auto) 77 % (31-73) 72 % (31-73) Lymphocytes (%) (Auto) 14 % (24-48) 20 % (24-48) Monocytes (%) (Auto) 8 % (0-9) 8 % (0-9) Eosinophils (%) (Auto) 0 % (0-3) 0 % (0-3) Basophils (%) (Auto) 1 % (0-3) 1 % (0-3) Neutrophils # (Auto) 5.8 x10^3uL (1.8-7.7) 5.1 x10^3uL (1.8-7.7) Lymphocytes # (Auto) 1.1 x10^3/uL (1.0-4.8) 1.4 x10^3/uL (1.0-4.8) Monocytes # (Auto) 0.6 x10^3/uL (0.0-1.1) 0.5 x10^3/uL (0.0-1.1) Eosinophils # (Auto) 0.0 x10^3/uL (0.0-0.7) 0.0 x10^3/uL (0.0-0.7) Basophils # (Auto) 0.1 x10^3/uL (0.0-0.2) 0.0 x10^3/uL (0.0-0.2) Prothrombin Time 11.9 SEC (9.4-11.4) Prothromb Time International Ratio 1.1 (0.9-1.1) Activated Partial Thromboplast Time 32 SEC (23-33) D-Dimer (Salima) 0.59 mg/L (0.00-0.50) Urine Collection Type Unknown Urine Color Yellow Urine Clarity Hazy Urine pH 6.0 Urine Specific [place] >=1.030 Urine Protein 100 mg/dl (NEG-TRACE) Urine Glucose (UA) Neg mg/dL (NEG) Urine Ketones (Stick) Neg mg/dL (NEG) Urine Blood Small (NEG) Urine Nitrite Neg (NEG) Urine Bilirubin Neg (NEG) Urine Urobilinogen Dipstick 0.2 mg/dL (0.2 mg/dL) Urine Leukocyte Esterase Neg (NEG) Urine RBC 1-2 /HPF (0-2) Urine WBC 1-4 /HPF (0-4) Urine Squamous Epithelial Cells Occ /LPF Urine Bacteria 0 /HPF (0-FEW) Urine Hyaline Casts Occ /HPF Urine Mucus Mod /LPF Sodium Level 141 mmol/L (136-145) 142 mmol/L (136-145) Potassium Level 3.3 mmol/L (3.5-5.1) 3.1 mmol/L (3.5-5.1) Chloride Level 102 mmol/L (98-107) 103 mmol/L (98-107) Carbon Dioxide Level 29 mmol/L (21-32) 29 mmol/L (21-32) Anion Gap 10 (6-14) 10 (6-14) Blood Urea Nitrogen 11 mg/dL (8-26) 11 mg/dL (8-26) Creatinine 1.3 mg/dL (0.7-1.3) 1.2 mg/dL (0.7-1.3) Estimated GFR (Cockcroft-Gault) 56.5 62.0 Glucose Level 117 mg/dL (70-99) 120 mg/dL (70-99) Calcium Level 8.4 mg/dL (8.5-10.1) 8.2 mg/dL (8.5-10.1) Magnesium Level 1.9 mg/dL (1.8-2.4) 1.9 mg/dL (1.8-2.4) Total Bilirubin 0.6 mg/dL (0.2-1.0) Direct Bilirubin 0.2 mg/dL (0.0-0.2) Aspartate Amino Transf (AST/SGOT) 47 U/L (15-37) Alanine Aminotransferase (ALT/SGPT) 44 U/L (16-63) Alkaline Phosphatase 60 U/L (46-116) Creatine Kinase 1094 U/L (39-308) Troponin I Quantitative 0.033 ng/mL (0-0.055) 0.044 ng/mL (0-0.055) JB-Hus-T-Type Natriuretic Peptide 4650 pg/mL (0-124) Total Protein 7.7 g/dL (6.4-8.2) Albumin 3.6 g/dL (3.4-5.0) Lipase 122 U/L (73-393) Thyroid Stimulating Hormone (TSH) 0.898 uIU/mL (0.358-3.740) Urine Opiates Screen Pos (NEG) Urine Methadone Screen Neg (NEG) Urine Barbiturates Neg (NEG) Urine Phencyclidine Screen Neg (NEG) Urine Amphetamine/Methamphetamine Neg (NEG) Urine Benzodiazepines Screen Neg (NEG) Urine Cocaine Screen Neg (NEG) Urine Cannabinoids Screen Neg (NEG) Urine Ethyl Alcohol Neg (NEG) Influenza Type A (Rapid) Positive (NEGATIVE) Influenza Type B (Rapid) Negative (NEGATIVE) Blood Gas pH 7.51 (7.35-7.46) Blood Gas PCO2 29 mmHg (35-46) Blood Gas PO2 54 mmHg (80-100) Blood Gas HCO3 23 mmol/L (21-28) Arterial Bld O2 Saturation (Calc) 91 % (92-99) FiO2 21 % Clostridium difficile Toxin B Gene Negative (Negative) Triglycerides Level 92 mg/dL (0-150) Cholesterol Level 89 mg/dL (0-200) LDL Cholesterol, Calculated 48 mg/dL (0-100) VLDL Cholesterol, Calculated 18 mg/dL (0-40) Non-HDL Cholesterol Calculated 66 mg/dL (0-129) HDL Cholesterol 23 mg/dL (40-60) Cholesterol/HDL Ratio 3.0 Test 09/09/19 05:56 White Blood Count 6.9 x10^3/uL (4.0-11.0) Red Blood Count 4.38 x10^6/uL (4.30-5.70) Hemoglobin 13.7 g/dL (13.0-17.5) Hematocrit 42.6 % (39.0-53.0) Mean Corpuscular Volume 97 fL (79-100) Mean Corpuscular Hemoglobin 31 pg (25-35) Mean Corpuscular Hemoglobin Concent 32 g/dL (31-37) Red Cell Distribution Width 15.5 % (11.5-14.5) Platelet Count 240 x10^3/uL (140-400) Sodium Level 140 mmol/L (136-145) Potassium Level 3.2 mmol/L (3.5-5.1) Chloride Level 101 mmol/L (98-107) Carbon Dioxide Level 29 mmol/L (21-32) Anion Gap 10 (6-14) Blood Urea Nitrogen 13 mg/dL (8-26) Creatinine 1.1 mg/dL (0.7-1.3) Estimated GFR (Cockcroft-Gault) 68.5 BUN/Creatinine Ratio 12 (6-20) Glucose Level 99 mg/dL (70-99) Calcium Level 8.2 mg/dL (8.5-10.1) Total Bilirubin 0.8 mg/dL (0.2-1.0) Aspartate Amino Transf (AST/SGOT) 43 U/L (15-37) Alanine Aminotransferase (ALT/SGPT) 38 U/L (16-63) Alkaline Phosphatase 54 U/L (46-116) Total Protein 7.2 g/dL (6.4-8.2) Albumin 3.0 g/dL (3.4-5.0) Albumin/Globulin Ratio 0.7 (1.0-1.7) Microbiology Micro Microbiology 09/07/19 Blood Culture - Preliminary, Resulted NO GROWTH AFTER 1 DAY... Physical Exams HEENT: Neck Supple W Full Motion Chest: Symmetric Lungs: Clear to Auscultation, Other (diminished bases) Heart: S1S2, irregularly irregular (AFIB with RVR rate 110-130) Abdomen: Soft N/T Extremities: No Edema Neurology: alert, oriented, follow commands Assessment Assessment 1. Acute respiratory failure with acute/chronic CHF, influenza 2. Influenza A, fevers. Tamiflu 3. Chronic AFIB with RVR; non-responsive to cardioversion. On Eliquis for stroke prevention. Remains in RVR this am 4. Acute on chronic systolic CHF; better compensated following diuresis 5. H/o NICM; LVEF 30% per echo 05/2019 6. Hypokalemia Recommendations Continue metoprolol, Cardizem for rate control. Will increase Cardizem to 360mg Will give IV Dig now, following by loading dose Eliquis for stroke prevention Replace K Is now interested in pursuing further ischemic evaluation with [facility] sooner rather than later. Will plan for on an outpatient basis once recovered from influenza. DON RODRIGUEZ MD 09/09/192053: CARDIO Progress Notes Assessment Assessment Patient seen and examined. Agree with MACHINE SETTER AUTOMATIC's assessment and plan. Persistent AFwith RVR We will load him with Digoxin IV, increase CZM dose and consider EP referral if HR still elevated Patient had declined ischemic eval for his cardiomyopathy in the past but currently interested Consider cardiac cath as outpatient LUCIUS PAYTON APRN Sep 09, 2019 11:29 DON RODRIGUEZ MD Sep 09, 2019 20:54
[2019-09-09] MEDS ORDERED: POTASSIUM CHLORIDE 20 MEQ TABLET.ER. PO ONE (14:30)
[2019-09-09] MEDS ORDERED: IPRATRPIUM/ALBUTEROL 0.5/2.5MG 3 ML NEBU. NEB PRN (15:45)
[2019-09-09] MEDS ORDERED: DIGOXIN IV 500 MCG/2 ML AMPUL. IV ONE ×2 (16:00→22:00)
[2019-09-09] MEDS ORDERED: ACETAMINOPHEN 325 MG TABLET PO ONE (16:25)
[2019-09-09] MEDS: ACETAMINOPHEN 325 MG TABLET PO PRN (16:27)
--- NOTE | 2019-09-09 21:23 | NUR ---
PT REPORTS DIFFICULTY SLEEPING OVER THE PAST COUPLE NIGHTS. WISHES TO RECEIVED PRN MED TO AID SLEEP. DR SAHNI NOTIFIED, ORDER RECEIVED FOR TEMAZEPAM 15 MG PO PRN QHS FOR INSOMNIA.
[2019-09-09] MEDS: POTASSIUM CHLORIDE 20 MEQ TABLET.ER. PO SCH (21:45)
[2019-09-09] MEDS: TEMAZEPAM 15 MG CAPSULE PO PRN (21:45)
[2019-09-09] MEDS: ATORVASTATIN CALCIUM 20 MG TABLET PO SCH (21:45)
--- NOTE | 2019-09-09 22:56 | PN ---
DATE: SUBJECTIVE: The patient is a 59-year-old male patient who was admitted with atrial fibrillation with rapid ventricular response. His heart rate continued to be extremely elevated this morning and the fact that it went up to 180 times. He apparently was seen by the Cardiology team to increase his Cardizem to 360 mg and his metoprolol of 200 mg daily. PHYSICAL EXAMINATION: GENERAL: When I saw him this afternoon, he stated that he is doing much, much better. VITAL SIGNS: His heart rate was in 90s, blood pressure was 135/90, temperature was 99.1, respiratory rate was 17 and oxygen saturation was 95% on room air. HEAD, EYES, EARS, NOSE AND THROAT: Showed normocephalic, atraumatic. NECK: Supple. HEART: Normal first and second heart sounds. No gallop, rub or murmur. CHEST: Clear to auscultation. No crepitation or rhonchi. ABDOMEN: Distended, soft, nontender. NEUROLOGIC: He was awake, alert, responding appropriately. All cranial nerves are intact. He moves extremities without difficulty. His intake over the last 24 hours was 1460, output was 1600. As of this morning, his white cell count was 6900, hemoglobin 13.7, hematocrit 42, MCV 97 and platelet count 242,000. His chemistry showed a serum sodium 140, potassium 3.2, chloride 101, bicarbonate 29, anion gap of 10, BUN 13, creatinine 1.1, estimated GFR was 68 mL per minute. His glucose was 99, calcium was 8.2. Total bilirubin, AST, ALT, alkaline phosphatase were normal. Total protein 7.2, albumin 3. His blood cultures are so far negative. ASSESSMENT: 1. Influenza A, for which he is on Tamiflu 75 mg twice a day. 2. Atrial fibrillation with rapid ventricular response. Heart rate is much better controlled now with the Cardizem 360 mg and metoprolol 100 mg. He is also on Eliquis for stroke prevention. 3. Community-acquired pneumonia for which he continued to be on Levaquin. 4. Ofsja-rj-knqrujy systolic congestive heart failure, likely due to nonischemic cardiomyopathy. PLAN: To continue with IV antibiotic. Continue with Tamiflu. Continue with Cardizem and metoprolol. Await the decision of the industrial recruiter regarding further management whether ablation and/or cardiac catheterization. LAURA SAHNI MD DR: Pio JOB#: [id number] / [id number]
[2019-09-10] VITALS (10 sets, daily range): BP systolic 98–130; BP diastolic 68–96
[2019-09-10 06:30] LABS: CALCIUM 7.9 mg/dL (8.5-10.1); CREATININE 0.9 mg/dL (0.7-1.3); GFR 86.4; POTASSIUM 3.2 mmol/L (3.5-5.1)
--- NOTE | 2019-09-10 06:46 | NUR ---
PT REPORTS SLEEPING WELL THROUGH NOC AFTER TEMAZEPAM ADMIN. STILL IN AFIB WITH RATE CONTROLLED IN THE 70-80'S. DENIES ANY C/O.
[2019-09-10] MEDS ORDERED: POTASSIUM CHLORIDE 20 MEQ TABLET.ER. PO ONE (08:00)
[2019-09-10] MEDS: METOPROLOL SUCC 24HR ER 50 MG TAB.ER.24H. PO SCH (08:32)
[2019-09-10] MEDS: OSELTAMIVIR 75 MG CAPSULE PO SCH ×2 (08:32→21:30)
[2019-09-10] MEDS: POTASSIUM CHLORIDE 20 MEQ TABLET.ER. PO SCH ×3 (08:33→21:29)
[2019-09-10] MEDS: APIXABAN 5 MG TABLET. PO SCH ×2 (08:33→21:30)
--- NOTE | 2019-09-10 09:03 | PDOC ---
LUCIUS PAYTON REHABILITATION PROGRAM COORDINATOR 09/10/19 0903: CARDIO Progress Notes Date & Time Date of Service DATE: 09/10/19 TIME: 09:01 Time of Evaluation 09:01 Subjective Notes Feeling much better today. No chest pain, dizziness, diaphoresis, or nausea/vomiting. Vitals Vitals Vital Signs Date Time Temp Pulse Resp B/P (MAP) Pulse Ox O2 Delivery O2 Flow Rate FiO2 09/10/19 08:33 82 114/83 09/10/19 06:00 98.2 14 93 Room Air 09/09/19 05:00 2.0 Weight Weight [ ] Input and Output I.O. Intake and Output 09/10/19 07:00 Intake Total 900 ml Output Total 350 ml Balance 550 ml Intake Oral 900 ml Output Urine Total 350 ml # Voids 5 # Bowel Movements 1 Laboratory Labs Laboratory Tests Test 09/09/19 05:56 09/10/19 05:55 White Blood Count 6.9 x10^3/uL (4.0-11.0) Red Blood Count 4.38 x10^6/uL (4.30-5.70) Hemoglobin 13.7 g/dL (13.0-17.5) Hematocrit 42.6 % (39.0-53.0) Mean Corpuscular Volume 97 fL (79-100) Mean Corpuscular Hemoglobin 31 pg (25-35) Mean Corpuscular Hemoglobin Concent 32 g/dL (31-37) Red Cell Distribution Width 15.5 % (11.5-14.5) Platelet Count 240 x10^3/uL (140-400) Sodium Level 140 mmol/L (136-145) 140 mmol/L (136-145) Potassium Level 3.2 mmol/L (3.5-5.1) 3.2 mmol/L (3.5-5.1) Chloride Level 101 mmol/L (98-107) 105 mmol/L (98-107) Carbon Dioxide Level 29 mmol/L (21-32) 28 mmol/L (21-32) Anion Gap 10 (6-14) 7 (6-14) Blood Urea Nitrogen 13 mg/dL (8-26) 10 mg/dL (8-26) Creatinine 1.1 mg/dL (0.7-1.3) 0.9 mg/dL (0.7-1.3) Estimated GFR (Cockcroft-Gault) 68.5 86.4 BUN/Creatinine Ratio 12 (6-20) Glucose Level 99 mg/dL (70-99) 87 mg/dL (70-99) Calcium Level 8.2 mg/dL (8.5-10.1) 7.9 mg/dL (8.5-10.1) Total Bilirubin 0.8 mg/dL (0.2-1.0) Aspartate Amino Transf (AST/SGOT) 43 U/L (15-37) Alanine Aminotransferase (ALT/SGPT) 38 U/L (16-63) Alkaline Phosphatase 54 U/L (46-116) Total Protein 7.2 g/dL (6.4-8.2) Albumin 3.0 g/dL (3.4-5.0) Albumin/Globulin Ratio 0.7 (1.0-1.7) Magnesium Level 2.0 mg/dL (1.8-2.4) Microbiology Micro Microbiology 09/07/19 Blood Culture - Preliminary, Resulted NO GROWTH AFTER 2 DAYS... Physical Exams HEENT: Neck Supple W Full Motion Chest: Symmetric Lungs: Clear to Auscultation, Other (diminished bases) Heart: S1S2, irregularly irregular (AFIB with RVR rate 95) Abdomen: Soft N/T Extremities: No Edema Neurology: alert, oriented, follow commands Assessment Assessment 1. Acute respiratory failure with acute/chronic CHF, influenza 2. Influenza A, fevers. Tamiflu 3. Persistent AFIB with RVR; non-responsive to cardioversion. On Eliquis for stroke prevention. Rate much better following loading dose of digoxin IV. 4. Acute on chronic systolic CHF; better compensated following diuresis 5. H/o NICM; LVEF 30% per echo 05/2019 6. Hypokalemia Recommendations Continue metoprolol, Cardizem for rate control. Will add oral digoxin daily Eliquis for stroke prophylaxis Consider LHC and EP referral on an outpatient basis once recovered from influenza. GAMALIEL TAM MD 09/11/19 1033: CARDIO Progress Notes Plan Plan late entry for 09/10/2019 Pt. seen and examined. Agree with above RADAR REPAIRER note. Supportive care. PLan for outpt ischemic evaluation and consider need for ICD after appropriate medical therapy LUCIUS PAYTON APRN Sep 10, 2019 09:03 GAMALIEL TAM MD Sep 11, 2019 10:33
[2019-09-10] MEDS: DIGOXIN 125 MCG TABLET PO SCH (11:04)
[2019-09-10] MEDS: ACETAMINOPHEN 325 MG TABLET PO PRN ×2 (13:31→18:40)
--- NOTE | 2019-09-10 18:33 | NUR ---
PATIENT STILL IN AFIB WITH RATE CONTROLLED IN THE 70-80'S. DENIES ANY C/O. PATIENT HAS BEEN ALERT, ORIENTED AND COOPERATIVE. PATIENT WILL BE DISCHARGED HOME TOMORROW AND IS TO FOLLOW UP WITH PRIMARY CARE PHYSICIAN AND CARDIOLOGY.
[2019-09-10] MEDS: ATORVASTATIN CALCIUM 20 MG TABLET PO SCH (21:30)
[2019-09-10] MEDS: LACTOBACILLUS RHAMNOSUS GG 1 CAPSULE. PO SCH (21:30)
[2019-09-10] MEDS: TEMAZEPAM 15 MG CAPSULE PO PRN (21:30)
--- NOTE | 2019-09-10 22:43 | NUR ---
Nursing Note Pt in chair during assessment, pleasant calm and cooperative, tells me about the whole sequela of events leading up to and surrounding his admission. States he had an ear infection but it went horribly wrong very quickly. 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 Denies pain or other complaints at this time, is happy to be feeling so much better. States he works for a company in [employer] to get insurance since he is too young for medicare, works for [employer]. Resting comfortably in bed now.
[2019-09-11 06:42] LABS: BASO % 1 % (0-3); EOS # 0.2 x10^3/uL (0.0-0.7); EOS % 4 % (0-3); HEMOGLOBIN 13.7 g/dL (13.0-17.5); LYMPH # 1.6 x10^3/uL (1.0-4.8); LYMPH % 34 % (24-48); MEAN CORPUSCULAR HEMOGLOBIN 31 pg (25-35); MEAN CORPUSCULAR HGB CONC 33 g/dL (31-37); MEAN CORPUSCULAR VOLUME 96 fL (79-100); MONO # 0.4 x10^3/uL (0.0-1.1); MONO % 8 % (0-9); NEUT # 2.6 x10^3uL (1.8-7.7); NEUT % 54 % (31-73); PLATELET COUNT 221 x10^3/uL (140-400); RED BLOOD COUNT 4.37 x10^6/uL (4.30-5.70); RED CELL DISTRIBUTION WIDTH 15.3 % (11.5-14.5); WHITE BLOOD COUNT 4.8 x10^3/uL (4.0-11.0)
[2019-09-11 06:45] LABS: ALBUMIN 2.6 g/dL (3.4-5.0); ALBUMIN/GLOBULIN RATIO 0.7 (1.0-1.7); CREATININE 0.9 mg/dL (0.7-1.3); GFR 86.4; POTASSIUM 3.8 mmol/L (3.5-5.1); TOTAL PROTEIN 6.1 g/dL (6.4-8.2)
[2019-09-11 06:55] VITALS: BP 109/83
--- NOTE | 2019-09-11 08:04 | PDOC ---
CARDIO Progress Notes Date & Time Date of Service DATE: 09/11/19 TIME: 08:04 Time of Evaluation 08:04 Subjective Notes Feeling much better today No chest pain, palpitations, dizziness, diaphoresis, or nausea/vomiting Vitals Vitals Vital Signs Date Time Temp Pulse Resp B/P (MAP) Pulse Ox O2 Delivery O2 Flow Rate FiO2 09/11/19 06:55 97.2 74 18 109/83 (92) 96 Room Air 09/09/19 05:00 2.0 Weight Weight [ ] Input and Output I.O. Intake and Output 09/11/19 07:00 Intake Total 1990 ml Output Total 1500 ml Balance 490 ml Intake Oral 1840 ml IV Total 150 ml Output Urine Total 1500 ml # Voids 10 Laboratory Labs Laboratory Tests Test 09/10/19 05:55 09/11/19 05:51 Sodium Level 140 mmol/L (136-145) 140 mmol/L (136-145) Potassium Level 3.2 mmol/L (3.5-5.1) 3.8 mmol/L (3.5-5.1) Chloride Level 105 mmol/L (98-107) 106 mmol/L (98-107) Carbon Dioxide Level 28 mmol/L (21-32) 25 mmol/L (21-32) Anion Gap 7 (6-14) 9 (6-14) Blood Urea Nitrogen 10 mg/dL (8-26) 9 mg/dL (8-26) Creatinine 0.9 mg/dL (0.7-1.3) 0.9 mg/dL (0.7-1.3) Estimated GFR (Cockcroft-Gault) 86.4 86.4 Glucose Level 87 mg/dL (70-99) 83 mg/dL (70-99) Calcium Level 7.9 mg/dL (8.5-10.1) 8.0 mg/dL (8.5-10.1) Magnesium Level 2.0 mg/dL (1.8-2.4) White Blood Count 4.8 x10^3/uL (4.0-11.0) Red Blood Count 4.37 x10^6/uL (4.30-5.70) Hemoglobin 13.7 g/dL (13.0-17.5) Hematocrit 42.0 % (39.0-53.0) Mean Corpuscular Volume 96 fL (79-100) Mean Corpuscular Hemoglobin 31 pg (25-35) Mean Corpuscular Hemoglobin Concent 33 g/dL (31-37) Red Cell Distribution Width 15.3 % (11.5-14.5) Platelet Count 221 x10^3/uL (140-400) Neutrophils (%) (Auto) 54 % (31-73) Lymphocytes (%) (Auto) 34 % (24-48) Monocytes (%) (Auto) 8 % (0-9) Eosinophils (%) (Auto) 4 % (0-3) Basophils (%) (Auto) 1 % (0-3) Neutrophils # (Auto) 2.6 x10^3uL (1.8-7.7) Lymphocytes # (Auto) 1.6 x10^3/uL (1.0-4.8) Monocytes # (Auto) 0.4 x10^3/uL (0.0-1.1) Eosinophils # (Auto) 0.2 x10^3/uL (0.0-0.7) Basophils # (Auto) 0.0 x10^3/uL (0.0-0.2) BUN/Creatinine Ratio 10 (6-20) Total Bilirubin 1.0 mg/dL (0.2-1.0) Aspartate Amino Transf (AST/SGOT) 44 U/L (15-37) Alanine Aminotransferase (ALT/SGPT) 45 U/L (16-63) Alkaline Phosphatase 59 U/L (46-116) Total Protein 6.1 g/dL (6.4-8.2) Albumin 2.6 g/dL (3.4-5.0) Albumin/Globulin Ratio 0.7 (1.0-1.7) Microbiology Micro Microbiology 09/07/19 Stool Culture - Preliminary, Resulted 09/07/19 Stool Culture Result 1 (HI) - Preliminary, Resulted 09/07/19 Campylobacter Antigen Assay - Preliminary, Resulted 09/07/19 Campylobactor Result 1 - Preliminary, Resulted 09/07/19 Shiga Toxin Test - Final, Resulted 09/07/19 Blood Culture - Preliminary, Resulted NO GROWTH AFTER 3 DAYS... Physical Exams HEENT: Neck Supple W Full Motion Chest: Symmetric Lungs: Clear to Auscultation, Other Heart: S1S2, irregularly irregular (AFIB with RVR rate near 90) Abdomen: Soft N/T Extremities: No Edema Neurology: alert, oriented, follow commands Assessment Assessment 1. Acute respiratory failure with acute/chronic CHF, influenza 2. Influenza A, fevers. Tamiflu 3. Persistent AFIB with RVR; rate controlled 4. Acute on chronic systolic CHF; appears compensated 5. H/o NICM; LVEF 30% per echo 05/2019 6. Hypokalemia; resolved Recommendations Continue metoprolol, Cardizem, and Digoxin for rate control. Eliquis for stroke prophylaxis May discharge from a CV standpoint and f/u in our office with Dr. Cardenas as scheduled Will arrange outpatient ischemic evaluation with [facility], given risk factors and cardiomyopathy, once recovered from Influenza. LUCIUS PAYTON APRN Sep 11, 2019 08:04
[2019-09-11 08:18] VITALS: BP 109/83
[2019-09-11] MEDS: METOPROLOL SUCC 24HR ER 50 MG TAB.ER.24H. PO SCH (08:18)
[2019-09-11] MEDS: DIGOXIN 125 MCG TABLET PO SCH (08:18)
[2019-09-11] MEDS: POTASSIUM CHLORIDE 20 MEQ TABLET.ER. PO SCH (08:19)
[2019-09-11] MEDS: APIXABAN 5 MG TABLET. PO SCH (08:19)
[2019-09-11] MEDS: OSELTAMIVIR 75 MG CAPSULE PO SCH (08:19)
[2019-09-11] MEDS: LACTOBACILLUS RHAMNOSUS GG 1 CAPSULE. PO SCH (08:19)
[2019-09-11] MEDS ORDERED: DILT360T7 PO (09:28)
[2019-09-11] MEDS ORDERED: DIGO125T17 PO (09:29)
[2019-09-11] MEDS ORDERED: OSEL75CA PO (09:30)
[2019-09-11] MEDS ORDERED: ATOR20TA PO (09:31)
[2019-09-11] MEDS ORDERED: LEVO750T31 PO (09:37)
--- NOTE | 2019-09-18 11:55 | DS ---
DATE OF DISCHARGE: 09/11/2019 HOSPITAL COURSE: The patient is a 59-year-old male patient, who was admitted to [facility] through the Emergency Room with a complaint of shortness of breath. He apparently saw his primary care physician for earache, his left ear, treated with Augmentin; did not seem to improve. He saw again Dr. Villalobos on Sunday, who started him on cefdinir 300 mg twice a day; that makes him very nauseous and he got diarrhea. He apparently has had about 10 episodes of diarrhea since the day of admission. His heart rate became extremely elevated, he became extremely short of breath. He was evaluated in the Emergency Room, found to be febrile. He continued to have fever as well as diarrhea, although he has also had abdominal pain, almost constant diarrhea. He also complained of a rapid irregular heart rate as he is known to have atrial fibrillation, for which he is on Cardizem, metoprolol and Eliquis. He has received his flu vaccination this season. He was investigated in the Emergency Room, was found to have hypokalemia. His CK was also high at 1094. Troponin was elevated at 0.033. His influenza A was positive. His urinalysis essentially was unremarkable and toxic screen was positive for opiates. His chest x-ray showed the patient has bilateral patchy infiltrate with a normal heart size and no pleural fluid. The patient was admitted with atrial fibrillation, rapid ventricular response, hypokalemia as well as pneumonia and was, in fact, on a Cardizem drip and was started on Tamiflu 75 mg twice a day. He was seen in consultation by the Cardiology team, and he was found also to have acute on chronic congestive heart failure and his AFib was unresponsive to cardioversion. His potassium was replenished and his heart failure has improved with IV diuresis. Eventually, the patient's heart rate has improved with metoprolol, Cardizem and digoxin, and his heart rate improved and appeared compensated, and decision was made to discharge him home to follow with his primary it solutions architect with a plan to do outpatient ischemic evaluation with left heart catheterization, given his risk factors and cardiomyopathy, once he recovered from influenza. PHYSICAL EXAMINATION: GENERAL: When I saw him on the day of discharge, he looked well and was clearly in no apparent respiratory distress. No pallor, jaundice, cyanosis or thyromegaly. No jugular venous distention. No limb edema. VITAL SIGNS: His heart rate was 74, blood pressure was 109/83, temperature was 97.2, respiratory rate was 18 and oxygen saturation was 96% on room air. HEAD, EYES, EARS, NOSE AND THROAT: Showed normocephalic, atraumatic. NECK: Supple. HEART: Showed normal first and second heart sounds. No gallop, rub or murmur. CHEST: Clear to auscultation. No crepitation or rhonchi. ABDOMEN: Distended, soft, nontender. NEUROLOGIC: He was awake, alert, responding appropriately. All cranial nerves are intact. He moves extremities without difficulty. His intake and output were incompletely recorded. LABORATORY DATA: On the day of discharge showed a white cell count of 4800, hemoglobin 13.7, hematocrit 42, MCV 96 and platelet count 221,000. Serum sodium was 140, potassium 3.8, chloride 106, bicarbonate 25, anion gap of 9, BUN 9, creatinine 0.9. Estimated GFR was 86 mL per minute. His glucose was 83, calcium was 8. Total bilirubin, AST, ALT and alkaline phosphatase were normal. Total protein was 6.1. Albumin was 2.6. DISCHARGE MEDICATIONS: He was discharged home to continue on following medications; Eliquis 5 mg twice a day, atorvastatin calcium 20 mg at bedtime, digoxin 125 mcg once a day, diltiazem 360 mg daily, hydrocodone/ibuprofen 7.5/200 one tablet every 6 hours as needed, levofloxacin 750 mg daily for 7 more days, metoprolol succinate 100 mg once a day and Tamiflu 75 mg twice a day. FINAL DISCHARGE DIAGNOSES: 1. Influenza A, for which he is on Tamiflu 75 mg twice a day. 2. Atrial fibrillation with rapid ventricular response. His heart rate is much better controlled now with the Cardizem, metoprolol as well as digoxin. He continues to be on Eliquis for stroke prevention. 3. Community-acquired pneumonia, for which he continues to be on Levaquin. 4. [id number] systolic congestive heart failure, likely due to nonischemic cardiomyopathy. LAURA SAHNI MD DR: AMINA/rula JOB#: [id number] / [id number]
== END 2019-09-11 10:05 | disposition home or self-care (01) | DRG 291 ==
LOC: ER 20:34 → ICU 21:49
PROVIDERS: ADMIT Internal Medicine; ATTEND Internal Medicine
DX: I11.0 Hypertensive heart disease with heart failure (principal); J10.00 Influenza due to other identified influenza virus with unspecified type of pneumonia; J96.01 Acute respiratory failure with hypoxia; I48.19 Other persistent atrial fibrillation; I50.43 Acute on chronic combined systolic (congestive) and diastolic (congestive) heart failure; I42.8 Other cardiomyopathies; E11.9 Type 2 diabetes mellitus without complications; E78.00 Pure hypercholesterolemia, unspecified; E78.5 Hyperlipidemia, unspecified; E87.6 Hypokalemia; M19.90 Unspecified osteoarthritis, unspecified site; F32.9 Major depressive disorder, single episode, unspecified; F41.9 Anxiety disorder, unspecified; I25.10 Atherosclerotic heart disease of native coronary artery without angina pectoris; J10.83 Influenza due to other identified influenza virus with otitis media; M79.7 Fibromyalgia; Z79.01 Long term (current) use of anticoagulants; Z82.49 Family history of ischemic heart disease and other diseases of the circulatory system; Z82.5 Family history of asthma and other chronic lower respiratory diseases
CPT/HCPCS: 36415; 36600; 71046; 80048; 80053; 80061; 80076; 80307; 81001; 82550; 82803; 83690; 83735; 83880; 84443; 84484; 85025; 85027; 85379; 85610; 85730; 87040; 87045; 87493; 87804; 93005; 94640; 96365; 96366; 96375; 96376; 99292; J0696; J1160; J1940; J1956; J2270; J3490; J7120; J7620; 99291-25

== ENCOUNTER → 2020-03-30 | Outpatient (CLI) | payer OTHER ==
[~2020-03-30] MED LIST changes: +ATOR20TA PO; +CEFD300C PO; +DIGO125T17 PO; +DILT360T7 PO; +LEVO750T31 PO; +METO-247 PO; +OSEL75CA PO
[2020-03-30 15:00] LABS: BASO # 0.1 x10^3/uL (0.0-0.2); BASO % 1 % (0-3); EOS # 0.3 x10^3/uL (0.0-0.7); EOS % 3 % (0-3); HEMATOCRIT 42.5 % (39.0-53.0); HEMOGLOBIN 14.3 g/dL (13.0-17.5); LYMPH # 1.5 x10^3/uL (1.0-4.8); LYMPH % 18 % (24-48); MEAN CORPUSCULAR HEMOGLOBIN 31 pg (25-35); MEAN CORPUSCULAR HGB CONC 34 g/dL (31-37); MEAN CORPUSCULAR VOLUME 93 fL (79-100); MONO # 0.5 x10^3/uL (0.0-1.1); MONO % 6 % (0-9); NEUT # 6.1 x10^3uL (1.8-7.7); NEUT % 73 % (31-73); PLATELET COUNT 301 x10^3/uL (140-400); RED BLOOD COUNT 4.57 x10^6/uL (4.30-5.70); RED CELL DISTRIBUTION WIDTH 13.5 % (11.5-14.5); WHITE BLOOD COUNT 8.4 x10^3/uL (4.0-11.0)
[2020-03-30 15:13] LABS: ALBUMIN 3.3 g/dL (3.4-5.0); ALBUMIN/GLOBULIN RATIO 0.9 (1.0-1.7); CALCIUM 8.6 mg/dL (8.5-10.1); CREATININE 1.5 mg/dL (0.7-1.3); GFR 47.7; POTASSIUM 3.5 mmol/L (3.5-5.1); TOTAL BILIRUBIN 0.8 mg/dL (0.2-1.0)
--- NOTE | 2020-03-30 16:21 | CARD ---
MR#: [id number] Date of Study: 03/30/2020 Ordering Physician: GAMALIEL TAM, Referring Physician: GAMALIEL TAM, Tech: Alisa Vazquez APPROVED REPORT EXAM: Two-dimensional and M-mode echocardiogram with Doppler and color Doppler. Other Information Quality : GoodHR: 91bpm INDICATION Atrial Fibrillation Cardiomyopathy RISK FACTORS Hypertension Hyperlipidemia 2D DIMENSIONS RVDd4.2 (2.9-3.5cm)Left Atrium(2D)4.0 (1.6-4.0cm) IVSd1.1 (0.7-1.1cm)Aortic Root(2D)4.0 (2.0-3.7cm) LVDd5.3 (3.9-5.9cm)LVOT Diameter2.2 (1.8-2.4cm) PWd1.1 (0.7-1.1cm)LVDs4.3 (2.5-4.0cm) FS (%) 19.1 %SV52.5 ml LVEF(%)39.0 (>50%) Aortic Valve AoV Peak Sean.137.2cm/sAoV VTI28.7cm AO Peak GR.9.3mmHgLVOT Peak Sean.112.7cm/s LVOT VTI 20.93cmAO Mean GR.5mmHg MARVIN (VMAX)2.29jn4OGA (VTI)2.65cm2 AI P 1/2 [id number] Mitral Valve MV E Peak Gr.126mmHgMV E Mean Gr.1mmHg Pulmonary Valve PV Peak Waqqkljh41.7cm/sPV Peak Grad.3mmHg Tricuspid Valve TR P. Wcbtlcti924sm/sRAP [id number] TR Peak Gr.59tvLsAPZA05skLo LEFT VENTRICLE The left ventricle is normal size. There is mild concentric left ventricular hypertrophy. The left ve ntricular systolic function is moderately impaired. The Ejection Fraction is 35-40%. Septal motion co nsistent with conduction abnormality. RIGHT VENTRICLE The right ventricle is mildly dilated. There is normal right ventricular wall thickness. The right ve ntricular systolic function is normal. ATRIA The left atrium size is normal. The right atrium is mildly dilated. The interatrial septum is intact with no evidence for an atrial septal defect or patent foramen ovale as noted on 2-D or Doppler imagi ng. AORTIC VALVE The aortic valve is normal in structure and function. Doppler and Color Flow revealed mild aortic reg urgitation. There is no significant aortic valvular stenosis. Calculated aortic valve area is 2.7 cm2 with maximum pressure gradient of 11 mmHg and mean pressure gradient of 6 mmHg. MITRAL VALVE The mitral valve is normal in structure and function. There is no evidence of mitral valve prolapse. There is no mitral valve stenosis. Doppler and Color-flow revealed mild mitral regurgitation. TRICUSPID VALVE The tricuspid valve is normal in structure and function. Doppler and Color Flow revealed mild tricusp id regurgitation with an estimated PAP of 30 mmHg. There is no tricuspid valve stenosis. PULMONIC VALVE The pulmonary valve is normal in structure and function. Doppler and Color Flow revealed trace pulmon ic valvular regurgitation. GREAT VESSELS The aortic root is mildly enlarged. The ascending aorta is Mildly dilated measuring 3.8 cm. The IVC i s normal in size and collapses >50% with inspiration. PERICARDIAL EFFUSION There is no evidence of significant pericardial effusion. Critical Notification Critical Value: No <Conclusion> The left ventricular systolic function is moderately impaired. The Ejection Fraction is 35-40%. Septal motion consistent with conduction abnormality. Mild aortic regurgitation. Mild mitral regurgitation. Mild tricuspid regurgitation with an estimated PAP of 30 mmHg. There is no evidence of significant pericardial effusion. Signed by : Aram Jack, Electronically Approved : 03/30/2020 16:20:20
== END | disposition home or self-care (01) ==
LOC: ECHO 14:27
PROVIDERS: ATTEND Internal Medicine Cardiovascular Disease
DX: I08.3 Combined rheumatic disorders of mitral, aortic and tricuspid valves (principal); I11.9 Hypertensive heart disease without heart failure; I42.9 Cardiomyopathy, unspecified; E78.5 Hyperlipidemia, unspecified; I48.91 Unspecified atrial fibrillation
CPT/HCPCS: 36415; 80053; 83880; 84443; 85025; 93306

== ENCOUNTER 2020-06-10 02:35 | Emergency (ER) | payer OTHER ==
[~2020-06-10] VITALS: Ht 182.9 cm; Wt 94.2 kg
--- NOTE | 2020-06-10 02:48 | PHYS DOC ---
Past History Past Medical History: A-Fib, Anxiety, Arthritis, CAD, Depression, Diabetes, Fibromyalgia, High Cholesterol, Heart Disease, Hypertension, Other Past Surgical History: Cholecystectomy, Other Additional Past Surgical Histo: BROKEN FEMUR Smoking: Non-smoker Alcohol Use: None Drug Use: None General Adult EDM: Chief Complaint: EARACHE/EAR PAIN HPI: HPI: Patient is a 60 year old male who presents for evaluation of moderate left-sided head pain but also pain around the ear and rating down to his neck and into his left shoulder. Symptoms have been persistent progressing for about 4 days. He states the pain was moderate to severe about midnight prompting him to come to the hospital. Patient denies any hearing changes, drainage from the ear etc. Review of patient's chart shows that he has significant past medical history. Patient denies any recent chest pain or shortness of air. Patient is otherwise benign-appearing. Further information obtained later from the patient shows that he has chronic slow rate atrial fibrillation and is on Eliquis blood thinner Review of Systems: Review of Systems: Constitutional: Denies fever or chills Eyes: Denies change in visual acuity HENT: Denies nasal congestion or sore throat Respiratory: Denies cough or shortness of breath Cardiovascular: Denies chest pain or edema GI: Denies abdominal pain, nausea, vomiting, bloody stools or diarrhea : Denies dysuria Musculoskeletal: Denies back pain or joint pain Integument: Denies rash Neurologic: Denies headache, focal weakness or sensory changes Endocrine: Denies polyuria or polydipsia Lymphatic: Denies swollen glands Psychiatric: Denies depression or anxiety Allergies: Allergies: Allergies Coded Allergies Type Severity Reaction Last Updated Verified No Known Drug Allergies 07/24/17 No Physical Exam: PE: Constitutional: Well developed, well nourished, mild acute distress, non-toxic appearance. [] HENT: Normocephalic, atraumatic, bilateral external ears normal, oropharynx moist, no oral exudates, nose normal, bilateral tympanic membranes are normal and nonerythematous. There is no obvious hemotympanums or other findings, canals are normal and nonerythematous. [] Eyes: PERRL, EOMI, conjunctiva normal, no discharge. [] Neck: Normal range of motion, tenderness around left ear and rating down the left side of his neck, there is no significant or obvious lymphadenopathy, supple, no stridor. [] Cardiovascular:Heart rate regular rhythm, no murmur [] Lungs & Thorax: Bilateral breath sounds clear to auscultation [] Abdomen: Bowel sounds normal, soft, no tenderness, no masses. [] Skin: Warm, dry, no erythema, no rash. [] Back: No tenderness. [] Extremities: No tenderness, no cyanosis, ROM intact, no edema. [] Neurologic: Alert and oriented X 3, normal motor function, normal sensory function, no focal deficits noted. [] Psychologic: Affect normal, judgement normal, mood anxious. [] Current Patient Data: Labs: Laboratory Tests Test 06/10/20 03:10 White Blood Count 8.3 x10^3/uL Red Blood Count 4.73 x10^6/uL Hemoglobin 14.2 g/dL Hematocrit 43.9 % Mean Corpuscular Volume 93 fL Mean Corpuscular Hemoglobin 30 pg Mean Corpuscular Hemoglobin Concent 32 g/dL Red Cell Distribution Width 13.7 % Platelet Count 290 x10^3/uL Neutrophils (%) (Auto) 66 % Lymphocytes (%) (Auto) 21 % Monocytes (%) (Auto) 8 % Eosinophils (%) (Auto) 4 % Basophils (%) (Auto) 1 % Neutrophils # (Auto) 5.5 x10^3uL Lymphocytes # (Auto) 1.8 x10^3/uL Monocytes # (Auto) 0.7 x10^3/uL Eosinophils # (Auto) 0.3 x10^3/uL Basophils # (Auto) 0.1 x10^3/uL Erythrocyte Sedimentation Rate 0 Sodium Level 138 mmol/L Potassium Level 3.9 mmol/L Chloride Level 103 mmol/L Carbon Dioxide Level 27 mmol/L Anion Gap 8 Blood Urea Nitrogen 10 mg/dL Creatinine 1.3 mg/dL Estimated GFR (Cockcroft-Gault) 56.3 BUN/Creatinine Ratio 8 Glucose Level 103 mg/dL Calcium Level 8.8 mg/dL Total Bilirubin 0.4 mg/dL Aspartate Amino Transf (AST/SGOT) 16 U/L Alanine Aminotransferase (ALT/SGPT) 25 U/L Alkaline Phosphatase 67 U/L C-Reactive Protein 6.9 mg/L Total Protein 6.7 g/dL Albumin 3.1 g/dL Albumin/Globulin Ratio 0.9 EKG: EKG: Irregular rhythm, frequent PVCs present, underlying bradycardia rhythm not STEMI [] Radiology/Procedures: Radiology/Procedures: [place] [address] IMAGING REPORT Signed PATIENT: RON JAEGER ACCOUNT: [id number] : 1960 LOCATION: ER AGE: 60 SEX: M EXAM STATUS: REG ER ORD. PHYSICIAN: CELSO SOLIS DO REASON: left sided headache, on eliquis PROCEDURE: CT HEAD WO CONTRAST EXAM: CT HEAD WITHOUT CONTRAST. HISTORY: Headache, anticoagulated. TECHNIQUE: Computed tomography of the head was performed without intravenous contrast. One or more of the following individualized dose reduction techniques were utilized for this examination: 1. Automated exposure control. 2. Adjustment of the mA and/or kV according to patient size. 3. Use of iterative reconstruction technique. COMPARISON: None. FINDINGS: There is no intracranial hemorrhage. Peña-white differentiation is preserved. The ventricles are normal in size and position. There is mild senescent volume loss. There is mild mucosal thickening in the sphenoid sinus. The orbits are unremarkable. The temporal bones are unremarkable. The calvarium reveals no suspicious lesions. IMPRESSION: 1. No acute intracranial findings. Electronically signed by: Nomi Guerra MD (06/10/2020 3:35 AM) [facility] DICTATED AND SIGNED BY: RAVINDER GUERRA MD DATE: 06/10/20 0335 CC: DINESH DEL REAL MD; CELSO SOLIS DO ~ [] Heart Score: HEART Score for Chest Pain: HEART Score for Chest Pain Response (Comments) Value History Slighlty/Non-Suspicious 0 ECG Nonspecific Repolarizatio 1 Age >45 - < 65 1 Risk Factors >3 Risk Factors or Hx CAD 2 Troponin < Normal Limit 0 Total 4 Risk Factors: Risk Factors: DM, Current or recent (<one month) smoker, HTN, HLP, family history of CAD, obesity. Risk Scores: Score 0 - 3: 2.5% MACE over next 6 weeks - Discharge Home Score 4 - 6: 20.3% MACE over next 6 weeks - Admit for Clinical Observation Score 7 - 10: 72.7% MACE over next 6 weeks - Early Invasive Strategies Course & Med Decision Making: Course & Med Decision Making Pertinent Labs and Imaging studies reviewed. (See chart for details) [] Christiano Disclaimer: Christiano Disclaimer: This electronic medical record was generated, in whole or in part, using a voice recognition dictation system. 0304 CT head no contrast added because patient has left-sided head pain and is on a blood thinner. Lab work also obtained including inflammatory marker CRP and sed rate. This further work-up was added because patient had essentially normal ear exam and the etiology of his pain is unclear. I could not palpate any obvious lymphadenopathy the left side of his neck. There is no signs of rash, redness or obvious inflammatory changes that were visible 0405 stable, patient states his pain is controlled. The etiology of his pain is unclear. Perhaps this is a soft tissue pain or muscle strain. Because of his extensive history I did do an EKG and cardiac labs. Patient sed rate was normal although his CRP was a bit elevated. CT scan head was completed for concerns about a possible brain bleed since he is on Eliquis. However the study was normal. Patient has a steady gait with no focal deficits. Prescription for Flexeril be given. Close follow-up recommended Departure Departure: Impression: Primary Impression: Left-sided headache Additional Impressions: Left ear pain Chronic atrial fibrillation Disposition: HOME SELF CARE/HOMELESS Condition: STABLE Referrals: DINESH DEL REAL MD (PCP) Patient Instructions: General Headache Without Cause Additional Instructions: Use gentle massage to help with your head and neck pain. ER work-up was unremarkable. You had a normal CAT scan of her head as well as normal blood work with exception of a slightly elevated inflammatory marker. However your sed rate is normal. Scripts Cyclobenzaprine Hcl (CYCLOBENZAPRINE HCL) 10 Mg Tablet 1 TAB PO TID for muscle pain, #30 TAB Prov: CELSO SOLIS DO 06/10/20 CELSO SOLIS DO Jun 10, 2020 02:48
--- NOTE | 2020-06-10 03:00 | EKG ---
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
[2020-06-10 03:27] LABS: BASO # 0.1 x10^3/uL (0.0-0.2); BASO % 1 % (0-3); EOS # 0.3 x10^3/uL (0.0-0.7); EOS % 4 % (0-3); HEMATOCRIT 43.9 % (39.0-53.0); HEMOGLOBIN 14.2 g/dL (13.0-17.5); LYMPH # 1.8 x10^3/uL (1.0-4.8); LYMPH % 21 % (24-48); MEAN CORPUSCULAR HEMOGLOBIN 30 pg (25-35); MEAN CORPUSCULAR HGB CONC 32 g/dL (31-37); MEAN CORPUSCULAR VOLUME 93 fL (79-100); MONO # 0.7 x10^3/uL (0.0-1.1); MONO % 8 % (0-9); NEUT # 5.5 x10^3uL (1.8-7.7); NEUT % 66 % (31-73); PLATELET COUNT 290 x10^3/uL (140-400); RED BLOOD COUNT 4.73 x10^6/uL (4.30-5.70); RED CELL DISTRIBUTION WIDTH 13.7 % (11.5-14.5); WHITE BLOOD COUNT 8.3 x10^3/uL (4.0-11.0)
--- NOTE | 2020-06-10 03:38 | RAD ---
EXAM: CT HEAD WITHOUT CONTRAST. HISTORY: Headache, anticoagulated. TECHNIQUE: Computed tomography of the head was performed without intravenous contrast. One or more of the following individualized dose reduction techniques were utilized for this examination: 1. Automated exposure control. 2. Adjustment of the mA and/or kV according to patient size. 3. Use of iterative reconstruction technique. COMPARISON: None. FINDINGS: There is no intracranial hemorrhage. Peña-white differentiation is preserved. The ventricles are normal in size and position. There is mild senescent volume loss. There is mild mucosal thickening in the sphenoid sinus. The orbits are unremarkable. The temporal bones are unremarkable. The calvarium reveals no suspicious lesions. IMPRESSION: 1. No acute intracranial findings. Electronically signed by: Nomi Guerra MD (06/10/2020 3:35 AM) [facility]
[2020-06-10 03:53] LABS: CALCIUM 8.8 mg/dL (8.5-10.1); CREATININE 1.3 mg/dL (0.7-1.3); GFR 56.3; POTASSIUM 3.9 mmol/L (3.5-5.1)
[2020-06-10 03:59] LABS: ALBUMIN 3.1 g/dL (3.4-5.0); ALBUMIN/GLOBULIN RATIO 0.9 (1.0-1.7); C REACTIVE PROTEIN 6.9 mg/L (0-3.3); TOTAL BILIRUBIN 0.4 mg/dL (0.2-1.0); TOTAL PROTEIN 6.7 g/dL (6.4-8.2)
[2020-06-10] MEDS ORDERED: CYCL-331 PO (04:13)
[2020-06-10 04:29] VITALS: BP 123/54
== END 2020-06-10 04:35 | disposition home or self-care (01) ==
LOC: ER 02:35
DX: R51.9 Headache, unspecified (principal); H92.02 Otalgia, left ear; M54.2 Cervicalgia; I48.20 Chronic atrial fibrillation, unspecified; M19.90 Unspecified osteoarthritis, unspecified site; F41.9 Anxiety disorder, unspecified; I11.9 Hypertensive heart disease without heart failure; E78.00 Pure hypercholesterolemia, unspecified; M79.7 Fibromyalgia; E11.9 Type 2 diabetes mellitus without complications; F32.9 Major depressive disorder, single episode, unspecified; Z90.49 Acquired absence of other specified parts of digestive tract; Z98.890 Other specified postprocedural states
CPT/HCPCS: 36415; 70450; 80053; 84484; 85025; 85651; 86140; 93005; 99285

== ENCOUNTER → 2020-06-18 | Outpatient (CLI) | payer OTHER ==
[2020-06-10 04:29] VITALS: BP 123/54
[~2020-06-18] MED LIST changes: +CYCL-331 PO
--- NOTE | 2020-06-18 17:00 | RAD ---
Ultrasound of the neck soft tissues INDICATION: Lumps felt by the patient's referring physician. Patient reports that the pain which motivated his desire for medical care has since resolved. TECHNIQUE: Grayscale and color Doppler imaging of the area of clinical concern in the left neck as indicated by the patient was performed FINDINGS: Multiple normal appearing cervical lymph nodes are identified, largest measuring 2 cm. None appear suspicious or otherwise in need of tissue sampling. No fluid collection or solid soft tissue masses identified either. IMPRESSION: Essentially unremarkable neck ultrasound in the area of clinical concern with normal appearing lymph nodes identified. Decision for (or against) biopsy should be made on a clinical basis. Electronically signed by: Sarah Contreras MD (06/18/2020 4:57 PM) [id number]
== END ==
LOC: US 14:11
PROVIDERS: ATTEND Family Medicine
DX: R22.1 Localized swelling, mass and lump, neck (principal)
CPT/HCPCS: 76536